=== PATIENT | male | born 1955 | race Caucasian/White ===

== ENCOUNTER 2019-10-26 15:43 | Emergency (ER) | payer BC, MEDICAID ==
--- NOTE | 2019-10-26 16:02 | ERPHSYRPT ---
- History of Present Illness Time Seen by Provider: 10/26/19 15:51 Source: patient Exam Limitations: no limitations Physician History: 64 years old male with history of tobacco abuse presented in the ER with sudden onset palpitation/fluttering sensation almost an hour prior to arrival while resting. Intermittent, associated with chest tightness and pressure/fullness w ithout any significant aggravating or relieving factors. Minimal shortness of breath. Patient reports having similar symptoms almost 10 days ago lasting for 2 hours but did not seek any medical attention. Denies any history of coronary artery disease or atrial fib/flutter/arrhythmias. Denies fever chills cough. No abdominal pain nausea or vomiting. Eyes heavy caffeine intake are energy drinks. Timing/Duration: today, sudden, worse Activities at Onset: rest Quality: pressure, tightness Location: substernal Chest Pain Radiation: no radiation Severity of Pain-Max: mild Severity of Pain-Current: mild Modifying Factors: Improves With: nothing Nitro Today/Relief: no nitro taken today Aspirin Treatment Today: 325 mg x 1 Prior Chest Pain/Cardiac Workup: no prior cardiac workup Allergies/Adverse Reactions: No Known Drug Allergies Allergy (Unverified 10/26/19 16:37) Home Medications: Aspirin 325 mg PO Q12H PRN PRN 10/26/19 [History] - Review of Systems Constitutional: No Symptoms Eyes: No Symptoms Ears, Nose, & Throat: No Symptoms Respiratory: Dyspnea Cardiac: Chest Pain, Palpitations Abdominal/Gastrointestinal: No Symptoms Genitourinary Symptoms: No Symptoms Musculoskeletal: No Symptoms Skin: No Symptoms Neurological: No Symptoms Psychological: No Symptoms Endocrine: No Symptoms Hematologic/Lymphatic: No Symptoms Immunological/Allergic: No Symptoms - Nursing Vital Signs Nursing Vital Signs: Initial Vital Signs Temperature 98.2 F 10/26/19 15:45 Pulse Rate 110 H 10/26/19 15:45 Respiratory Rate 22 10/26/19 15:45 Blood Pressure 173/138 10/26/19 15:45 O2 Sat by Pulse Oximetry 98 10/26/19 15:45 Pain Scale Pain Intensity 0 - Physical Exam General Appearance: no apparent distress, alert, anxiety Eye Exam: PERRL/EOMI, eyes nml inspection Ears, Nose, Throat Exam: normal ENT inspection, TMs normal, pharynx normal Neck Exam: normal inspection, non-tender, supple, full range of motion Respiratory Exam: normal breath sounds, lungs clear Cardiovascular Exam: tachycardia Gastrointestinal/Abdomen Exam: soft, normal bowel sounds, No tenderness Back Exam: normal inspection Extremity Exam: normal inspection, normal range of motion Neurologic Exam: alert, oriented x 3, cooperative, contract processor II-XII nml as tested Skin Exam: normal color SpO2 Interpretation: normal O2 Delivery: Room Air - Course Nursing assessment & vital signs reviewed: Yes EKG Interpreted by Me: RATE (157 with atrial flutter), NORMAL AXIS, Other (ST depression in anterolateral leads) Rhythm Strip: Atrial Flutter Ordered Tests: Active Orders 24 hr Category Date Time Status Scientist STAT Care 10/26/19 16:06 Active EKG-ER Only STAT Care 10/26/19 16:05 Active IV Insertion STAT Care 10/26/19 16:05 Active Oxygen-ED Only Nasal Cannula 2 lpm Care 10/26/19 16:05 Active CHEST 1 VIEW (PORTABLE) Routine Exams 10/26/19 16:01 Completed CBC W DIFF Stat Lab 10/26/19 15:45 Completed CMP Stat Lab 10/26/19 15:45 Completed MAGNESIUM Stat Lab 10/26/19 15:45 Completed Manual Differential NC Stat Lab 10/26/19 15:45 Completed NT PRO BNP Stat Lab 10/26/19 15:45 Completed PROTIME WITH INR Stat Lab 10/26/19 15:45 Completed PTT Stat Lab 10/26/19 15:45 Completed TROPONIN Q3H Lab 10/26/19 15:45 Completed TROPONIN Q3H Lab 10/26/19 19:15 Ordered TROPONIN Q3H Lab 10/26/19 22:15 Ordered TROPONIN Q3H Lab 10/27/19 01:15 Ordered TROPONIN Q3H Lab 10/27/19 04:15 Ordered TSH [TSH, 3RD Generation] Stat Lab 10/26/19 16:20 Completed UA W/RFX UR CULTURE Stat Lab 10/26/19 Completed Medication Summary Generic Name Dose Route Start Last Admin Trade Name Freq PRN Reason Stop Dose Admin Enoxaparin Sodium 90 mg 10/26/19 17:45 Enoxaparin Sodium 1 mg/kg (90 mg) 11/25/19 17:44 SQ 1XONLY GISELLE Magnesium Sulfate/Dextrose 100 mls @ 100 mls/hr 10/26/19 16:15 10/26/19 18:08 Magnesium 1 Gm / 100 Ml D5w IV 10/26/19 18:14 100 mls/hr Q1H GISELLE Administration Diltiazem HCl 100 mls @ 5 mls/hr 10/26/19 16:19 10/26/19 16:25 Cardizem Drip 100 Mg/100 Ml D5w IV 11/25/19 16:18 5 mg/hr .Q20H PRN 5 mls/hr HEART RATE/ A-FIB Administration Protocol 5 MG/HR Discontinued Medications Generic Name Dose Route Start Last Admin Trade Name Freq PRN Reason Stop Dose Admin Adenosine Confirm 10/26/19 16:08 Adenocard Iv 6 Mg/2 Ml Administered 10/26/19 16:09 Dose 12 mg IV .STK-MED ONE Diltiazem HCl 20 mg 10/26/19 16:19 10/26/19 16:25 Cardizem Iv 50 Mg/10 Ml IV 10/26/19 16:20 20 mg STAT ONE Administration Diltiazem HCl Confirm 10/26/19 16:22 Cardizem Iv 50 Mg/10 Ml Administered 10/26/19 16:23 Dose 50 mg IV .STK-MED ONE Sodium Chloride 1,000 mls @ 999 mls/hr 10/26/19 16:05 10/26/19 16:30 Sodium Chloride 0.9% 1000 Ml IV 10/26/19 17:05 999 mls/hr .Q1H1M STA Administration Sodium Chloride Confirm 10/26/19 16:08 Sodium Chloride 0.9% 1000 Ml Administered 10/26/19 16:09 Dose 1,000 mls @ ud .ROUTE .STK-MED ONE Lab/Rad Data: Laboratory Result Diagrams 10/26/19 15:45 10/26/19 15:45 Laboratory Results 10/26/19 10/26/19 10/26/19 Range/Units Unknown 16:20 15:45 WBC (4.0-10.5) K/mm3 RBC (4.1-5.6) M/mm3 Hgb (12.5-18.0) gm/dl Hct (42-50) % MCV (78-100) fl MCH (26-32) pg MCHC (32-36) g/dl RDW (11.5-14.0) % Plt Count (150-450) K/mm3 MPV (7.5-11.0) fl Segmented Neutrophils (36.-66.) % Band Neutrophils (0.0-2.0) % Lymphocytes (Manual) (24-44) % Monocytes (Manual) (0.0-12.0) % Eosinophils (Manual) (0.00-3.0) % Metamyelocytes % Platelet Estimate (NORMAL) RBC Morphology PT (8.83-12.87) SECONDS INR (0.8-3.0) APTT (24.1-36.1) SECONDS Sodium (137-145) mmol/L Potassium (3.5-5.1) mmol/L Chloride (98-107) mmol/L Carbon Dioxide (22-30) mmol/L Anion Gap (5-15) MEQ/L BUN (9-20) mg/dL Creatinine (0.66-1.25) mg/dL Estimated GFR ML/MIN Glucose (74-106) mg/dL Calcium (8.4-10.2) mg/dL Magnesium (1.6-2.3) mg/dL Total Bilirubin (0.2-1.3) mg/dL AST (17-59) U/L ALT (0-50) U/L Alkaline Phosphatase (38-126) U/L Troponin I < 0.012 (0.000-0.034) ng/mL NT-Pro-B Natriuret Pep (0-900) pg/mL Serum Total Protein (6.3-8.2) g/dL Albumin (3.5-5.0) g/dL TSH 3rd Generation 2.030 (0.47-4.68) mIU/L Urine Color STRAW (YELLOW) Urine Appearance CLEAR (CLEAR) Urine pH 5.0 (5-6) Ur Specific [place] 1.009 (1.005-1.025) Urine Protein NEGATIVE (Negative) Urine Ketones TRACE (NEGATIVE) Urine Blood SMALL (0-5) Noel/ul Urine Nitrite NEGATIVE (NEGATIVE) Urine Bilirubin NEGATIVE (NEGATIVE) Urine Urobilinogen NEGATIVE (0-1) mg/dL Ur Leukocyte Esterase NEGATIVE (NEGATIVE) Urine WBC (Auto) NONE (0-5) /HPF Urine RBC (Auto) NONE (0-2) /HPF U Epithel Cells (Auto) NONE (FEW) /HPF Urine Bacteria (Auto) NONE (NEGATIVE) /HPF Urine Mucus (Auto) SLIGHT (NEGATIVE) /HPF Urine Culture Reflexed NO (NO) Urine Glucose NEGATIVE (NEGATIVE) mg/dL 10/26/19 10/26/19 10/26/19 Range/Units 15:45 15:45 15:45 WBC 12.3 H (4.0-10.5) K/mm3 RBC 5.29 (4.1-5.6) M/mm3 Hgb 16.4 (12.5-18.0) gm/dl Hct 47.8 (42-50) % MCV 90.4 (78-100) fl MCH 31.0 (26-32) pg MCHC 34.3 (32-36) g/dl RDW 14.0 (11.5-14.0) % Plt Count 315 (150-450) K/mm3 MPV 10.2 (7.5-11.0) fl Segmented Neutrophils 74 H (36.-66.) % Band Neutrophils 1 (0.0-2.0) % Lymphocytes (Manual) 20 L (24-44) % Monocytes (Manual) 2 (0.0-12.0) % Eosinophils (Manual) 1 (0.00-3.0) % Metamyelocytes 2 % Platelet Estimate NORMAL (NORMAL) RBC Morphology NORMAL PT 11.6 (8.83-12.87) SECONDS INR 1.03 (0.8-3.0) APTT 33.7 (24.1-36.1) SECONDS Sodium 138 (137-145) mmol/L Potassium 4.3 (3.5-5.1) mmol/L Chloride 104 (98-107) mmol/L Carbon Dioxide 21 L (22-30) mmol/L Anion Gap 17.4 H (5-15) MEQ/L BUN 26 H (9-20) mg/dL Creatinine 1.14 (0.66-1.25) mg/dL Estimated GFR > 60.0 ML/MIN Glucose 104 (74-106) mg/dL Calcium 10.0 (8.4-10.2) mg/dL Magnesium 2.4 H (1.6-2.3) mg/dL Total Bilirubin 0.70 (0.2-1.3) mg/dL AST 38 (17-59) U/L ALT 41 (0-50) U/L Alkaline Phosphatase 95 (38-126) U/L Troponin I (0.000-0.034) ng/mL NT-Pro-B Natriuret Pep 40.2 (0-900) pg/mL Serum Total Protein 9.5 H (6.3-8.2) g/dL Albumin 5.1 H (3.5-5.0) g/dL TSH 3rd Generation (0.47-4.68) mIU/L Urine Color (YELLOW) Urine Appearance (CLEAR) Urine pH (5-6) Ur Specific [place] (1.005-1.025) Urine Protein (Negative) Urine Ketones (NEGATIVE) Urine Blood (0-5) Noel/ul Urine Nitrite (NEGATIVE) Urine Bilirubin (NEGATIVE) Urine Urobilinogen (0-1) mg/dL Ur Leukocyte Esterase (NEGATIVE) Urine WBC (Auto) (0-5) /HPF Urine RBC (Auto) (0-2) /HPF U Epithel Cells (Auto) (FEW) /HPF Urine Bacteria (Auto) (NEGATIVE) /HPF Urine Mucus (Auto) (NEGATIVE) /HPF Urine Culture Reflexed (NO) Urine Glucose (NEGATIVE) mg/dL - Progress Progress: improved, re-examined Air Movement: good Progress Note: 10/26/19 17:42 64 years old is evaluated for sudden onset of palpitations. Patient's heart rate was in 150s to 200s on presentation. He was maintaining his oxygen satura tion on room air. Does not seem to be in any distress. EKG showed no acute ST elevation but tachycardia. I have given him adenosine which slowed the heart rate for a few seconds but was back up again. The underlying rhythm I believe is atrial flutter. He is given 2gram magnesium along with bolus of Cardizem and started on Cardizem drip and currently heart rate in 110s. Chest x-ray did not show any acute cardiopulmonary findings. Negative initial troponins. I have given a dose of Lovenox. Discussed with Dr. Hartman, recommended transfer to [place] for further evaluation by cardiology. I think this is reasonable since we do not have cardiology services and patient has new onset arrhythmia, needs EP study and further evaluation by cardiology. Discussed with Dr. Ellsworth at [facility] and patient is accepted for transfer. Plan discussed with patient in detail who understand and agrees with transfer. Blood Culture(s) Obtained: No Antibiotics given: No Discussed with Dr.: Other (Ellsworth [place] [facility]) Counseled pt/family regarding: lab results, diagnosis, rad results, smoking cessation - Departure Departure Disposition: Transfer Clinical Impression: Atrial flutter Qualifiers: Atrial flutter type: unspecified Qualified Code(s): I48.92 - Unspecified atrial flutter Condition: Stable Critical Care Time: Yes Critical Care Time(excluding separately billable procedures): Critical 30-74 mins Referrals: DOCTOR,NO FAMILY [Primary Care Provider] -
[2019-10-26] MEDS ORDERED: Sodium Chloride 0.9% 1000 ML 1,000 ML IV STA (16:05)
[2019-10-26] MEDS ORDERED: Adenocard IV 6 MG/2 ML IV ONE (16:08)
[2019-10-26] MEDS ORDERED: Sodium Chloride 0.9% 1000 ML 1,000 ML ONE (16:08)
[2019-10-26] MEDS ORDERED: Magnesium 1 Gm / 100 Ml D5W*** 100 ML IV ONE ×2 (16:10→18:07)
[2019-10-26 16:16] LABS: Hematocrit 47.8 % (42-50); Hemoglobin 16.4 gm/dl (12.5-18.0); Mean Cell Volume 90.4 fl (78-100); Mean Corpuscular Hgb Concent. 34.3 g/dl (32-36); Mean Platelet Volume 10.2 fl (7.5-11.0); Platelet Count 315 K/mm3 (150-450); Red Blood Count 5.29 M/mm3 (4.1-5.6); White Blood Count 12.3 K/mm3 (4.0-10.5)
[2019-10-26] MEDS ORDERED: Cardizem IV 50 MG/10 ML IV ONE ×2 (16:19→16:22)
[2019-10-26] MEDS ORDERED: CARDIZEM DRIP 100 MG/100 ML D5W 100 ML IV PRN (16:19)
[2019-10-26] MEDS ORDERED: CARDIZEM DRIP 100 MG/100 ML D5W 100 ML IV ONE (16:22)
[2019-10-26 16:25] LABS: INR 1.03 (0.8-3.0); PROTIME 11.6 SECONDS (8.83-12.87)
[2019-10-26 16:27] LABS: PTT 33.7 SECONDS (24.1-36.1)
--- NOTE | 2019-10-26 16:28 | XRAY ---
Indication: Heart flutter. Blurred vision. Comparison: November 27, 2015. Portable chest remains hyperinflated and clear. Heart is not enlarged. Bony thorax intact again with mild degenerative changes. Impression: Continued nonacute hyperinflated chest.
[2019-10-26] MEDS: Magnesium 1 Gm / 100 Ml D5W*** 100 ML IV SCH ×2 (16:30→18:08)
[2019-10-26 16:39] LABS: ALBUMIN 5.1 g/dL (3.5-5.0); ALKALINE PHOSPHATASE 95 U/L (38-126); ANION GAP 17.4 MEQ/L (5-15); BLOOD UREA NITROGEN 26 mg/dL (9-20); CHLORIDE 104 mmol/L (98-107); Carbon Dioxide 21 mmol/L (22-30); Creatinine 1 1.14 mg/dL (0.66-1.25); Glucose 104 mg/dL (74-106); MAGNESIUM 2.4 mg/dL (1.6-2.3); NT PRO BNP 40.2 pg/mL (0-900); Potassium 4.3 mmol/L (3.5-5.1); SGOT/AST 38 U/L (17-59); SGPT/ALT 41 U/L (0-50); SODIUM 138 mmol/L (137-145); Total Protein 9.5 g/dL (6.3-8.2)
[2019-10-26 17:20] LABS: Appearance CLEAR (CLEAR); Bilirubin NEGATIVE (NEGATIVE); Blood SMALL Ery/ul (0-5); Glucose NEGATIVE (NEGATIVE); Ketones TRACE (NEGATIVE); Leukocyte Esterase NEGATIVE (NEGATIVE); Mucus SLIGHT /HPF (NEGATIVE); Nitrite NEGATIVE (NEGATIVE); Protein,Urine Dip NEGATIVE (Negative); Specific Gravity 1.009 (1.005-1.025); Urobilinogen NEGATIVE mg/dL (0-1)
[2019-10-26 17:42] LABS: BAND 1 % (0.0-2.0); Eosinophil 1 % (0.00-3.0); Lymphocytes 20 % (24-44); Metamyelocyte 2 %; Monocyte 2 % (0.0-12.0); Neutrophils 74 % (36.-66.); Total Cells Counted 100
[2019-10-26 17:43] LABS: Platelet Estimate NORMAL (NORMAL)
[2019-10-26] MEDS ORDERED: ENOXAPARIN SODIUM SQ SCH (17:45)
[2019-10-26] MEDS ORDERED: ENOXAPARIN SODIUM SQ ONE (18:09)
[2019-10-26] MEDS ORDERED: ENOXAPARIN SODIUM SQ STA (18:12)
[2019-10-26 19:12] VITALS: BP 139/87; PULSE 98; O2SAT 99
== END 2019-10-26 19:30 | disposition short-term general hospital (02) ==
LOC: ED 15:43
DX: I48.92 Unspecified atrial flutter (principal)
CPT/HCPCS: 36000; 36415; 71045; 80053; 81001; 83735; 83880; 84443; 84484; 85025; 85610; 85730; 93005; 93041; 96360; 96365; 96366; 96367; 96372; 96375; 99285; 99291; J0153; J1650; J3475

== ENCOUNTER 2019-12-02 08:08 | Day surgery (SDC) | payer MEDICAID, OTHER ==
[~2019-12-02 08:08] MED LIST: CEFAZOLIN 2 GM-D5W BAG** 2 GM/50 ML ML IV SCH; Lactated Ringers 1,000 ML IV SCH
[2019-12-02] MEDS ORDERED: CEFAZOLIN 2 GM-D5W BAG** 2 GM/50 ML ML IV ONE (09:02)
[2019-12-02] MEDS ORDERED: Lactated Ringers 1,000 ML IV ONE ×2 (09:03→10:22)
[2019-12-02] MEDS ORDERED: XYLOCAINE 1% HCL 20 ML MDV ONE ×2 (10:22→11:42)
[2019-12-02] MEDS ORDERED: SUBLIMAZE 100 MCG/2 ML ONE (10:24)
[2019-12-02] MEDS ORDERED: Versed 2 MG/2 ML Injection ONE (10:24)
[2019-12-02] MEDS ORDERED: Ketamine HCl 50 MG/ML ONE (10:32)
--- NOTE | 2019-12-02 12:04 | XRAY ---
Indication: Port placement. Intraoperative fluoroscopy was provided for 33 seconds. 3 digital spot images submitted for interpretation demonstrates left Port-A-Cath with tip projecting over the SVC. Correlate with intraoperative findings/report.
--- NOTE | 2019-12-02 12:05 | OP ---
SURGERY DATE/TIME: 12/02/2019 1024 PREOPERATIVE DIAGNOSIS: Tonsillar cancer. POSTOPERATIVE DIAGNOSIS: Tonsillar cancer. PROCEDURE: Left subclavian port insertion with fluoroscopic interpretation. SURGEON: Johnson Ricardo M.D. ANESTHESIA: IV anesthesia with local. PATIENT CONDITION: Stable. COMPLICATIONS: None. HISTORY: The patient is a 64 year old male with recently diagnosed tonsillar cancer, planning to undergo chemo and radiation treatment. Port was requested by oncology. Risk of infection, bleeding, internal bleeding and were discussed with the patient and he elected to proceed. FINDINGS: First stick. Tip at the cavoatrial junction. DESCRIPTION OF PROCEDURE: The patient was brought to operating room. He was placed supine with arms tucked. He was routinely prepped and draped. IV anesthesia was induced. A time out was performed. He did receive Ancef preoperatively. Lidocaine was injected at the left subclavian stick site. Seeker needle was advanced. There was dark, nonpulsatile return of blood on first stick. The wire threaded easily. This was confirmed with C-arm fluoroscopy. The pocket was measured out, anesthetized and then developed. Port was loosely sutured in place. The catheter was tunneled. The sheath dilator was placed under fluoroscopy. The catheter was inserted and measured to size. The tip was at the cavoatrial junction. The sheath was partially torn away. Tip was again confirmed and connected to catheter and the tear away sheath was lifted away. The stick was then imaged with fluoroscopy. The tip had actually flipped up into the internal jugular. As such the catheter at the stick incision was brought up and then did gently advance with fluoroscopy and it easily went down to the cavoatrial junction again. The final images of the tip and the entire rest of the catheter was at apex. The tip was at the cavoatrial junction. Prolene was tied down. The port was tested and there was good return and flushed. It was flushed with heparinized saline. Deep 3-0 Vicryl were placed and was closed with 4-0 Vicryl suture. Steri-Strips and sterile dressings were applied. All counts were correct. The patient tolerated the procedure well and was taken to recovery in stable condition.
[2019-12-02 12:17] VITALS: BP 112/74; PULSE 72; O2SAT 97
== END 2019-12-02 12:30 | disposition home or self-care (01) ==
LOC: SDC 08:08
PROVIDERS: ATTEND Surgery
DX: C09.9 Malignant neoplasm of tonsil, unspecified (principal)
CPT/HCPCS: 36571; 77001; C1788; J0690; J1642; J2250; J3010

== ENCOUNTER 2019-12-10 11:27 | Inpatient (IN) | payer OTHER ==
--- NOTE | 2019-12-10 11:35 | ERPHSYRPT ---
- History of Present Illness Time Seen by Provider: 12/10/19 11:35 Historian: patient, family Exam Limitations: no limitations Physician History: This is a 64-year-old white male who has a history of hypertension and atrial fibrillation on Eliquis and presents with diarrhea for 3 days. He has crampy lower abdominal pain. Patient is receiving chemotherapy for pharynge al/esophageal cancer. His oncologist is Dr. Rodriguez. His abdominal pain is a 4 out of 10. Patient also noticed that today he was having mild chest pain with the rating of 1 out of 10. He is not short of breath. He has had no nausea or vomiting symptoms. Patient feels that he is likely dehydrated. He does feel very weak. When he drinks fluid it goes right through him. He did take his medications this morning Timing/Duration: day(s) (3) Quality: cramping (Abdominal pain), tightness (Vague tightness in the chest) Location: substernal Chest Pain Radiation: no radiation Severity of Pain-Max: mild Severity of Pain-Current: mild Modifying Factors: Improves With: nothing Associated Symptoms: weakness, dizziness, No nausea, No vomiting Prior Chest Pain/Cardiac Workup: cardiac cath, recently seen/treated Nitro Today/Relief: no nitro taken today Aspirin Treatment Today: no aspirin today Allergies/Adverse Reactions: No Known Drug Allergies Allergy (Verified 12/10/19 11:49) Home Medications: ALPRAZolam [Alprazolam] 0.5 mg PO HSPRN PRN 11/30/19 [History] Atorvastatin Calcium [Lipitor] 80 mg PO HS 11/30/19 [History] Carvedilol 3.125 mg [Coreg 3.125 MG] 3.125 mg PO BID 11/30/19 [History] Diltiazem HCl [Matzim LA] 180 mg PO DAILY 11/30/19 [History] Fenofibrate Nanocrystallized [Fenofibrate] 145 mg PO DAILY 11/30/19 [History] Ondansetron ODT 4 MG [Zofran Odt 4 mg] 4 mg PO Q6H PRN PRN 11/30/19 [History] CISplatin [Cisplatin] 50 mg IV WEEKLY 12/10/19 [History] Docetaxel [Taxotere] 20 mg IV WEEKLY 08/14/20 [History] Hx Tetanus, Diphtheria Vaccination/Date Given: No Hx Influenza Vaccination/Date Given: No Hx Pneumococcal Vaccination/Date Given: No Travel Risk - International Travel Have you traveled outside of the country in past 3 weeks: No - Coronavirus Screening Are you exhibiting any of the following symptoms?: No Close contact with a COVID-19 positive Pt in past 14-21 Days: No - Review of Systems Constitutional: No Symptoms Eyes: No Symptoms Ears, Nose, & Throat: No Symptoms Respiratory: No Symptoms Cardiac: Chest Pain Abdominal/Gastrointestinal: Abdominal Pain (Crampy lower abdominal pain), Diarrhea, No Nausea, No Vomiting Genitourinary Symptoms: No Symptoms Musculoskeletal: No Symptoms Skin: No Symptoms Neurological: No Symptoms Psychological: No Symptoms Endocrine: No Symptoms Hematologic/Lymphatic: No Symptoms Immunological/Allergic: No Symptoms All Other Systems: Reviewed and Negative - Past Medical History Pertinent Past Medical History: Yes Neurological History: No Pertinent History ENT History: Other Cardiac History: Arrhythmia, High Cholesterol, Hypertension Respiratory History: Sleep Apnea Endocrine Medical History: No Pertinent History Musculoskeletal History: No Pertinent History GI Medical History: No Pertinent History History: No Pertinent History Psycho-Social History: Anxiety Male Reproductive Disorders: No Pertinent History Other Medical History: throat CA, AFib, sleep apnea - Past Surgical History Past Surgical History: Yes Neuro Surgical History: No Pertinent History Cardiac: No Pertinent History Respiratory: No Pertinent History Gastrointestinal: No Pertinent History Genitourinary: No Pertinent History Musculoskeletal: Orthopedic Surgery Male Surgical History: No Pertinent History Other Surgical History: R leg procedure for chain saw injury, basal cell carcinoma, - Social History Smoking Status: Former smoker How long have you smoked: 30 years Exposure to second hand smoke: No Drug Use: none Patient Lives Alone: No - Nursing Vital Signs Nursing Vital Signs: Initial Vital Signs Pulse Rate 121 H 12/10/19 11:43 Respiratory Rate 19 12/10/19 11:43 Blood Pressure 97/70 12/10/19 11:43 O2 Sat by Pulse Oximetry 93 L 12/10/19 11:43 Pain Scale Pain Intensity 4 - Physical Exam General Appearance: mild distress, alert, anxiety Eye Exam: PERRL/EOMI, eyes nml inspection Ears, Nose, Throat Exam: normal ENT inspection, moist mucous membranes Neck Exam: normal inspection, non-tender, supple, full range of motion Respiratory Exam: normal breath sounds, lungs clear, airway intact, No chest tenderness, No respiratory distress Cardiovascular Exam: normal peripheral pulses, tachycardia Gastrointestinal/Abdomen Exam: soft, normal bowel sounds, No tenderness Rectal Exam: not done Back Exam: normal inspection, normal range of motion, No CVA tenderness, No vertebral tenderness Extremity Exam: normal inspection, normal range of motion, pelvis stable Neurologic Exam: alert, oriented x 3, cooperative, president [employer] II-XII nml as tested, normal mood/affect, nml cerebellar function, nml station & gait, sensation nml Skin Exam: normal color, warm, dry Lymphatic Exam: No adenopathy SpO2 Interpretation: borderline oxygenation - Course Nursing assessment & vital signs reviewed: Yes Ordered Tests: Active Orders 24 hr Category Date Time Status Data Entry Associate STAT Care 12/10/19 11:44 Active EKG-ER Only STAT Care 12/10/19 11:43 Active IV Insertion STAT Care 12/10/19 11:43 Active Pulse Oximetry (ED) STAT Care 12/10/19 11:43 Active CHEST 1 VIEW (PORTABLE) Stat Exams 12/10/19 11:43 Completed CBC W DIFF Stat Lab 12/10/19 11:43 Completed CMP Stat Lab 12/10/19 12:23 Completed MAGNESIUM Stat Lab 12/10/19 12:23 Completed Manual Differential NC Stat Lab 12/10/19 11:43 Completed PROTIME WITH INR Stat Lab 12/10/19 12:23 Completed TROPONIN Q3H Lab 12/10/19 12:23 Completed TROPONIN Q3H Lab 12/10/19 14:45 Ordered TROPONIN Q3H Lab 12/10/19 17:45 Ordered TROPONIN Q3H Lab 12/10/19 20:45 Ordered TROPONIN Q3H Lab 12/10/19 23:45 Ordered Medication Summary Generic Name Dose Route Start Last Admin Trade Name Freq PRN Reason Stop Dose Admin Sodium Chloride 1,000 mls @ 999 mls/hr 12/10/19 13:20 Sodium Chloride 0.9% 1000 Ml IV 12/10/19 14:20 .Q1H1M STA Discontinued Medications Generic Name Dose Route Start Last Admin Trade Name Freq PRN Reason Stop Dose Admin Sodium Chloride 1,000 mls @ 999 mls/hr 12/10/19 11:43 12/10/19 12:35 Sodium Chloride 0.9% 1000 Ml IV 12/10/19 12:43 999 mls/hr .Q1H1M STA Administration Sodium Chloride Confirm 12/10/19 12:32 Sodium Chloride 0.9% 1000 Ml Administered 12/10/19 12:33 Dose 1,000 mls @ .[facility] Lab/Rad Data: Laboratory Result Diagrams 12/10/19 11:43 12/10/19 12:23 Laboratory Results 12/10/19 12/10/19 12/10/19 Range/Units 12:23 12:23 12:23 WBC (4.0-10.5) K/mm3 RBC (4.1-5.6) M/mm3 Hgb (12.5-18.0) gm/dl Hct (42-50) % MCV (78-100) fl MCH (26-32) pg MCHC (32-36) g/dl RDW (11.5-14.0) % Plt Count (150-450) K/mm3 MPV (7.5-11.0) fl Absolute Granulocytes (1.4-6.9) Segmented Neutrophils (36.-66.) % Band Neutrophils (0.0-2.0) % Lymphocytes (Manual) (24-44) % Monocytes (Manual) (0.0-12.0) % Platelet Estimate (NORMAL) RBC Morphology PT 21.6 H (8.83-12.87) SECONDS INR 1.90 (0.8-3.0) Sodium 129 L (137-145) mmol/L Potassium 3.8 (3.5-5.1) mmol/L Chloride 95 L (98-107) mmol/L Carbon Dioxide 20 L (22-30) mmol/L Anion Gap 16.8 H (5-15) MEQ/L BUN 29 H (9-20) mg/dL Creatinine 1.48 H (0.66-1.25) mg/dL Estimated GFR 51.2 ML/MIN Glucose 142 H (74-106) mg/dL Calcium 9.3 (8.4-10.2) mg/dL Magnesium 2.2 (1.6-2.3) mg/dL Total Bilirubin 1.00 (0.2-1.3) mg/dL AST 23 (17-59) U/L ALT 25 (0-50) U/L Alkaline Phosphatase 74 (38-126) U/L Troponin I < 0.012 (0.000-0.034) ng/mL Serum Total Protein 7.5 (6.3-8.2) g/dL Albumin 3.9 (3.5-5.0) g/dL 12/10/19 Range/Units 11:43 WBC 3.1 L (4.0-10.5) K/mm3 RBC 4.10 (4.1-5.6) M/mm3 Hgb 12.5 (12.5-18.0) gm/dl Hct 37.0 L (42-50) % MCV 90.2 (78-100) fl MCH 30.5 (26-32) pg MCHC 33.8 (32-36) g/dl RDW 13.9 (11.5-14.0) % Plt Count 289 (150-450) K/mm3 MPV 10.4 (7.5-11.0) fl Absolute Granulocytes 1.42 (1.4-6.9) Segmented Neutrophils 32 L (36.-66.) % Band Neutrophils 14 H (0.0-2.0) % Lymphocytes (Manual) 48 H (24-44) % Monocytes (Manual) 6 (0.0-12.0) % Platelet Estimate NORMAL (NORMAL) RBC Morphology NORMAL PT (8.83-12.87) SECONDS INR (0.8-3.0) Sodium (137-145) mmol/L Potassium (3.5-5.1) mmol/L Chloride (98-107) mmol/L Carbon Dioxide (22-30) mmol/L Anion Gap (5-15) MEQ/L BUN (9-20) mg/dL Creatinine (0.66-1.25) mg/dL Estimated GFR ML/MIN Glucose (74-106) mg/dL Calcium (8.4-10.2) mg/dL Magnesium (1.6-2.3) mg/dL Total Bilirubin (0.2-1.3) mg/dL AST (17-59) U/L ALT (0-50) U/L Alkaline Phosphatase (38-126) U/L Troponin I (0.000-0.034) ng/mL Serum Total Protein (6.3-8.2) g/dL Albumin (3.5-5.0) g/dL - Progress Progress: improved Air Movement: good Progress Note: 12/10/19 13:[address] Monte who is the patient's primary care physician. I reviewed the patient's history, condition, laboratory data, EKG results and radiographic findings. The patient appears to be dehydrated from multiple days and multiple episodes of diarrheal stools. We will place the patient in observation the patient for IV hydration. He accepts the patient for placement in observation. Blood Culture(s) Obtained: No Antibiotics given: No Discussed with : Juan Carlos Counseled pt/family regarding: lab results, diagnosis, need for follow-up, rad results - Departure Departure Disposition: Observation Clinical Impression: Intractable diarrhea, Dehydration, Hyponatremia, Hypotension due to hypovolemia Condition: Fair Critical Care Time: No Referrals: HAILEY MONTE [Primary Care Provider] -
[2019-12-10] MEDS ORDERED: Sodium Chloride 0.9% 1000 ML 1,000 ML IV STA ×2 (11:43→13:20)
--- NOTE | 2019-12-10 12:10 | XRAY ---
Indication: Chest pain. Chemotherapy for throat cancer. Comparison: October 26, 2019. Portable chest again demonstrates normal heart and lungs with new left Port-A-Cath. Bony thorax intact again with minimal degenerative changes.
[2019-12-10 12:20] LABS: Hemoglobin 12.5 gm/dl (12.5-18.0); Mean Cell Volume 90.2 fl (78-100); Mean Corpuscular Hemoglobin 30.5 pg (26-32); Mean Corpuscular Hgb Concent. 33.8 g/dl (32-36); Mean Platelet Volume 10.4 fl (7.5-11.0); Platelet Count 289 K/mm3 (150-450); Red Cell Distribution Width 13.9 % (11.5-14.0); White Blood Count 3.1 K/mm3 (4.0-10.5)
[2019-12-10 12:27] LABS: INR 1.9 (0.8-3.0); PROTIME 21.6 SECONDS (8.83-12.87)
[2019-12-10] MEDS ORDERED: Sodium Chloride 0.9% 1000 ML 1,000 ML ONE ×2 (12:32→13:34)
[2019-12-10 12:34] LABS: ALBUMIN 3.9 g/dL (3.5-5.0); ANION GAP 16.8 MEQ/L (5-15); Calcium 9.3 mg/dL (8.4-10.2); Creatinine 1 1.48 mg/dL (0.66-1.25); MAGNESIUM 2.2 mg/dL (1.6-2.3); Potassium 3.8 mmol/L (3.5-5.1); Total Protein 7.5 g/dL (6.3-8.2)
[2019-12-10 13:11] LABS: BAND 14 % (0.0-2.0); Lymphocytes 48 % (24-44); Monocyte 6 % (0.0-12.0); Neutrophils 32 % (36.-66.); Total Cells Counted 100
[2019-12-10 13:12] LABS: Platelet Estimate NORMAL (NORMAL)
[2019-12-10 13:13] LABS: Absolute Neutrophil Ct (ANC) 1.42 (1.4-6.9)
[2019-12-10] MEDS ORDERED: Zofran 4 MG/2 ML VIAL IV PRN (15:42)
[2019-12-10] MEDS ORDERED: NON-FORMULARY ITEM (Hydrocodone/Apap 5-325 Tab^^^ 1 TAB) PO PRN (16:58)
[2019-12-10] MEDS ORDERED: xanAX 0.5 MG PO PRN (16:58)
[2019-12-10] MEDS: Sodium Chloride 0.9% 1000 ML 1,000 ML IV SCH ×2 (16:59→23:47)
[2019-12-10] MEDS: MORPHINE SULFATE 2 MG INJ IV PRN ×3 (17:00→23:54)
[2019-12-10] MEDS: TYLENOL 325 MG PO PRN ×2 (17:36→21:19)
[2019-12-10] MEDS: Coreg 3.125 MG PO SCH (21:19)
[2019-12-10] MEDS: ELIQUIS 2.5 MG TABLET PO SCH (21:20)
[2019-12-10] MEDS: ZOCOR 20MG PO SCH (21:21)
[2019-12-10] MEDS ORDERED: NON-FORMULARY ITEM (Atorvastatin Calcium [Lipitor] 80 MG) PO SCH (22:00)
[2019-12-10] MEDS ORDERED: NON-FORMULARY ITEM (Apixaban [Eliquis] 5 MG) PO SCH (22:00)
[2019-12-11] MEDS: TYLENOL 325 MG PO PRN ×2 (01:24→06:07)
[2019-12-11] MEDS: MORPHINE SULFATE 2 MG INJ IV PRN ×3 (03:35→23:50)
[2019-12-11 05:57] LABS: Hematocrit 33.9 % (42-50); Hemoglobin 11.1 gm/dl (12.5-18.0); Mean Cell Volume 91.9 fl (78-100); Mean Corpuscular Hemoglobin 30.1 pg (26-32); Mean Corpuscular Hgb Concent. 32.7 g/dl (32-36); Mean Platelet Volume 10.3 fl (7.5-11.0); Platelet Count 287 K/mm3 (150-450); Red Blood Count 3.69 M/mm3 (4.1-5.6); White Blood Count 2.4 K/mm3 (4.0-10.5)
[2019-12-11 06:17] LABS: ALBUMIN 3.5 g/dL (3.5-5.0); ALKALINE PHOSPHATASE 61 U/L (38-126); ANION GAP 13.1 MEQ/L (5-15); BLOOD UREA NITROGEN 21 mg/dL (9-20); CHLORIDE 100 mmol/L (98-107); Calcium 8.5 mg/dL (8.4-10.2); Carbon Dioxide 22 mmol/L (22-30); Creatinine 1 1.17 mg/dL (0.66-1.25); Glucose 118 mg/dL (74-106); SGOT/AST 21 U/L (17-59); SGPT/ALT 21 U/L (0-50); SODIUM 132 mmol/L (137-145)
[2019-12-11 07:05] LABS: BAND 8 % (0.0-2.0); Lymphocytes 46 % (24-44); Monocyte 6 % (0.0-12.0); Neutrophils 40 % (36.-66.); Total Cells Counted 100
[2019-12-11 07:06] LABS: Platelet Estimate NORMAL (NORMAL)
[2019-12-11] MEDS: Sodium Chloride 0.9% 1000 ML 1,000 ML IV SCH (08:22)
[2019-12-11] MEDS: PROTONIX 40 MG IV IV SCH (09:38)
[2019-12-11] MEDS: ELIQUIS 2.5 MG TABLET PO SCH ×2 (09:43→22:01)
[2019-12-11] MEDS: IMODIUM 2 MG PO PRN ×3 (09:43→16:24)
[2019-12-11] MEDS: Tricor 145 MG PO SCH (09:43)
[2019-12-11] MEDS: D5W/0.45NS W/ 20mEq KCl 1000 ML 1,000 ML IV SCH ×3 (09:43→22:15)
[2019-12-11] MEDS ORDERED: DILTIAZEM HCL 180 MG PO SCH (10:00)
[2019-12-11] MEDS: Cardizem CD 180 MG PO SCH (10:46)
[2019-12-11] MEDS: Acidophilus TABLET PO SCH (10:46)
[2019-12-11] MEDS: Coreg 3.125 MG PO SCH ×2 (10:52→22:01)
[2019-12-11] MEDS: NORCO 5/325 MG PO PRN ×2 (14:40→20:42)
[2019-12-11 19:53] LABS: Campylobacter NEGATIVE (NEGATIVE); Enteroaggregative E.coli NEGATIVE (NEGATIVE); Enteropathogenic E.coli NEGATIVE (NEGATIVE); Enterotoxigenic E.coli NEGATIVE (NEGATIVE); Plesiomonas shigelloides NEGATIVE (NEGATIVE); Salmonella NEGATIVE (NEGATIVE); Shiga-like toxin prod.E.coli NEGATIVE (NEGATIVE); Vibrio NEGATIVE (NEGATIVE); Vibrio cholerae NEGATIVE (NEGATIVE); Yersinia enterocolitica NEGATIVE (NEGATIVE)
[2019-12-11 19:54] LABS: Adenovirus F 40/41 NEGATIVE (NEGATIVE); Astrovirus NEGATIVE (NEGATIVE); Cryptosporidium NEGATIVE (NEGATIVE); Cyclospora cayentanensis NEGATIVE (NEGATIVE); Entamoeaba histolytica NEGATIVE (NEGATIVE); Giardia lamblia NEGATIVE (NEGATIVE); Norovirus GI/GII NEGATIVE (NEGATIVE); Rotavirus A NEGATIVE (NEGATIVE); Sapovirus NEGATIVE (NEGATIVE)
[2019-12-11 19:55] LABS: C. Difficile Organism POSITIVE (NEGATIVE)
[2019-12-11] MEDS: FLAGYL 500 MG IVPB 500 MG/100 ML BAG IV SCH (22:01)
[2019-12-11] MEDS: ZOCOR 20MG PO SCH (22:01)
[2019-12-12] MEDS: FLAGYL 500 MG IVPB 500 MG/100 ML BAG IV SCH ×3 (05:01→21:55)
[2019-12-12] MEDS: NORCO 5/325 MG PO PRN ×3 (05:04→22:06)
[2019-12-12] MEDS: D5W/0.45NS W/ 20mEq KCl 1000 ML 1,000 ML IV SCH ×3 (05:10→20:54)
[2019-12-12] MEDS: ELIQUIS 2.5 MG TABLET PO SCH ×2 (10:11→21:55)
[2019-12-12] MEDS: PROTONIX 40 MG IV IV SCH (10:11)
[2019-12-12] MEDS: Tricor 145 MG PO SCH (10:11)
[2019-12-12] MEDS: Acidophilus TABLET PO SCH (10:11)
[2019-12-12] MEDS: Cardizem CD 180 MG PO SCH (10:11)
[2019-12-12] MEDS: Coreg 3.125 MG PO SCH ×2 (10:29→21:56)
[2019-12-12] MEDS: QUESTRAN Light 4 GM Packet PO SCH (12:13)
[2019-12-12] MEDS: ZOCOR 20MG PO SCH (21:56)
[2019-12-13 01:16] LABS: Appearance CLEAR (CLEAR); Bilirubin NEGATIVE (NEGATIVE); Blood SMALL Ery/ul (0-5); Glucose NEGATIVE (NEGATIVE); Ketones NEGATIVE (NEGATIVE); Leukocyte Esterase NEGATIVE (NEGATIVE); Nitrite NEGATIVE (NEGATIVE); Protein,Urine Dip NEGATIVE (Negative); RBC 0-2 /HPF (0-2); Specific Gravity 1.006 (1.005-1.025); Urobilinogen NEGATIVE mg/dL (0-1); WBC 0-2 /HPF (0-5)
[2019-12-13] MEDS: D5W/0.45NS W/ 20mEq KCl 1000 ML 1,000 ML IV SCH (03:51)
[2019-12-13 04:48] LABS: Hematocrit 28.7 % (42-50); Hemoglobin 9.4 gm/dl (12.5-18.0); Mean Corpuscular Hemoglobin 30.1 pg (26-32); Mean Corpuscular Hgb Concent. 32.8 g/dl (32-36); Mean Platelet Volume 9.9 fl (7.5-11.0); Platelet Count 350 K/mm3 (150-450); Red Blood Count 3.12 M/mm3 (4.1-5.6); Red Cell Distribution Width 14.6 % (11.5-14.0); White Blood Count 6.6 K/mm3 (4.0-10.5)
[2019-12-13 05:15] LABS: ALBUMIN 2.9 g/dL (3.5-5.0); ALKALINE PHOSPHATASE 55 U/L (38-126); ANION GAP 10.8 MEQ/L (5-15); BLOOD UREA NITROGEN 9 mg/dL (9-20); CHLORIDE 101 mmol/L (98-107); Calcium 7.7 mg/dL (8.4-10.2); Carbon Dioxide 23 mmol/L (22-30); Creatinine 1 0.94 mg/dL (0.66-1.25); Glucose 126 mg/dL (74-106); Potassium 5.2 mmol/L (3.5-5.1); SGOT/AST 22 U/L (17-59); SGPT/ALT 16 U/L (0-50); SODIUM 130 mmol/L (137-145)
[2019-12-13] MEDS: FLAGYL 500 MG IVPB 500 MG/100 ML BAG IV SCH (05:52)
[2019-12-13] MEDS: NORCO 5/325 MG PO PRN ×3 (06:01→22:26)
[2019-12-13 07:19] LABS: ANISOCYTOSIS 1+; BAND 14 % (0.0-2.0); Lymphocytes 33 % (24-44); Monocyte 16 % (0.0-12.0); Neutrophils 37 % (36.-66.); Platelet Estimate NORMAL (NORMAL); Total Cells Counted 100; Toxic Granulation 2+
[2019-12-13 07:20] LABS: Microcytosis 1+; Poikilocytosis 1+; Polychromasia RARE
[2019-12-13 07:21] LABS: Schistocytes RARE
[2019-12-13] MEDS: Sodium Chloride 0.9% 1000 ML 1,000 ML IV SCH ×3 (09:08→22:59)
[2019-12-13] MEDS: ELIQUIS 2.5 MG TABLET PO SCH ×2 (09:08→22:05)
[2019-12-13] MEDS: PROTONIX 40 MG IV IV SCH (09:08)
[2019-12-13] MEDS: Tricor 145 MG PO SCH (09:08)
[2019-12-13] MEDS: Acidophilus TABLET PO SCH (09:08)
[2019-12-13] MEDS: Cardizem CD 180 MG PO SCH (09:08)
[2019-12-13] MEDS: QUESTRAN Light 4 GM Packet PO SCH (09:09)
[2019-12-13] MEDS: Coreg 3.125 MG PO SCH ×2 (09:27→22:05)
--- NOTE | 2019-12-13 11:28 | HP ---
CHIEF COMPLAINT: Diarrhea, nausea, abdominal pain. HISTORY OF PRESENT ILLNESS: The patient is a 64 year old white male patient who has been diagnosed with esophageal cancer particularly in the pharyngeal area. The patient had been started by Dr. Dunlap on chemotherapy. He has now received his second. He reports he received two different chemotherapy medications on Mondays. He reports that after his most recent dose he had problems with diarrhea, unable to keep any fluids in his system as he would drink and it would go right through him. The patient reports that his heart rate became quite high. He does have a history of atrial fibrillation and his heart rate was running in the 160's. He therefore came to the emergency room for further evaluation and management. PAST MEDICAL HISTORY: The patient's medical history is otherwise significant for anxiety, hyperlipidemia and hypertension. PHYSICAL EXAMINATION: He had vital signs initially in the emergency room of pulse rate of 121, respiratory rate 19, blood pressure 97/70. O2 saturation 93%. HEENT: Normocephalic, atraumatic. Pupils equal round reactive to light. Extraocular movements intact. Oropharynx is somewhat dry. NECK: Supple. The patient reports that he has had decreasing swelling in his neck even after just two chemotherapy treatments. He did have some what appeared to be some lymphadenopathy in the left side of the neck. CHEST: Essentially clear. HEART: Regular rate and rhythm currently without significant murmurs, rubs or gallops. ABDOMEN: Diffusely tender. No palpable masses. EXTREMITIES: Without cyanosis, clubbing or edema. NEUROLOGIC: The patient is currently alert and oriented x3. LAB DATA AND TESTS: The patient's laboratory studies in the emergency room revealed a metabolic panel showing glucose 142, BUN 29, creatinine 1.48, sodium low at 129, potassium normal. Liver enzymes were normal. His troponin was less than 0.012. His white count was 3,100, hemoglobin 12.5, PLT count was normal at 289,000. His differential showed 14 bands, 32 polys and 48 lymphocytes. INR was noted to be 1.90. His chest x-ray shows a new Port-A-Cath otherwise his heart and lungs appear to be normal. His tracings currently show sinus rhythm. Appears to be on his initial 12-lead EKG of tachycardia. His axis appeared to be normal, appeared to be no significant delay in progression of R-wave across the precordial leads. ASSESSMENT: A patient with diarrhea, dehydration, mild acute kidney injury due to his chemotherapy agent. The patient has been admitted to the hospital for IV fluids and he will receive Imodium to help reduce the bowel movements as he has had more than ten in the last 24 hours. We will obtain stool samples to rule out any enteric pathogen but it is felt likely secondary to his chemotherapy medications. We will watch him for infections due to decreased white count due to chemotherapy agents as well. The patient to continue IV fluids to help with his dehydration and I will give him IV Protonix to help decrease his stomach acid concentration.
[2019-12-13] MEDS: VANCOMYCIN HCL CAPSULE PO SCH ×3 (14:10→22:04)
[2019-12-13] MEDS: ZOCOR 20MG PO SCH (22:04)
--- NOTE | 2019-12-13 22:38 | PCM.NOTE ---
Date and Time: 12/13/192232 - Review of Systems Constitutional: No Fever Eyes: No Symptoms Ears, Nose, & Throat: No Symptoms, Other (L sided throat cancer) Respiratory: No Cough, No Short Of Breath, No Wheezing Cardiac: No Chest Pain, No Edema Abdominal/Gastrointestinal: Abdominal Pain, Nausea, Diarrhea, No Vomiting, No Constipation, No Dysphagia Genitourinary Symptoms: Hesitancy Musculoskeletal: No Symptoms Skin: No Symptoms Neurological: No Symptoms Objective Exam General Appearance: no apparent distress, obese Neurologic Exam: oriented x 3, cooperative Skin Exam: normal color, warm, dry, No rash Gastrointestinal/Abdomen Exam: soft, normal bowel sounds, No tenderness, No distention OBJECTIVE DATA Vital Signs: Vital Signs - 24 hr Temp Pulse Resp BP Pulse Ox 12/13/19 20:00 98.5 F 82 20 102/66 98 12/13/19 16:00 98.4 F 79 16 106/65 99 12/13/19 12:00 96.7 F 76 18 110/67 99 12/13/19 08:00 98.1 F 73 18 93/61 97 12/13/19 04:00 97.8 F 78 16 90/56 99 12/13/19 00:00 98.3 F 74 21 83/62 98 Pain Assessment - Last Documented Pain Intensity 3 Pain Scale Used 0-10 Pain Scale Intake and Output: Intake & Output 12/11/19 12/12/19 12/13/19 12/14/19 11:59 11:59 11:59 11:59 Intake Total 2784 5913 960 3191 Balance 2784 5913 960 3191 Weight 89.1 kg 92.5 kg Lab Results: Lab Results-Last 24 Hours 12/13/19 12/13/19 12/13/19 Range/Units 00:38 04:25 04:25 WBC 6.6 (4.0-10.5) K/mm3 RBC 3.12 L (4.1-5.6) M/mm3 Hgb 9.4 L (12.5-18.0) gm/dl Hct 28.7 L (42-50) % MCV 92.0 (78-100) fl MCH 30.1 (26-32) pg MCHC 32.8 (32-36) g/dl RDW 14.6 H (11.5-14.0) % Plt Count 350 (150-450) K/mm3 MPV 9.9 (7.5-11.0) fl Segmented Neutrophils 37 (36.-66.) % Band Neutrophils 14 H (0.0-2.0) % Lymphocytes (Manual) 33 (24-44) % Monocytes (Manual) 16 H (0.0-12.0) % Toxic Granulation 2+ Platelet Estimate NORMAL (NORMAL) RBC Morphology ABNORMAL Polychromasia RARE Poikilocytosis 1+ Anisocytosis 1+ Microcytosis 1+ Schistocytes RARE Sodium 130 L (137-145) mmol/L Potassium 5.2 H D (3.5-5.1) mmol/L Chloride 101 (98-107) mmol/L Carbon Dioxide 23 (22-30) mmol/L Anion Gap 10.8 (5-15) MEQ/L BUN 9 (9-20) mg/dL Creatinine 0.94 (0.66-1.25) mg/dL Estimated GFR > 60.0 ML/MIN Glucose 126 H (74-106) mg/dL Calcium 7.7 L (8.4-10.2) mg/dL Total Bilirubin 0.50 (0.2-1.3) mg/dL AST 22 (17-59) U/L ALT 16 (0-50) U/L Alkaline Phosphatase 55 (38-126) U/L Serum Total Protein 6.0 L (6.3-8.2) g/dL Albumin 2.9 L (3.5-5.0) g/dL Urine Color YELLOW (YELLOW) Urine Appearance CLEAR (CLEAR) Urine pH 6.0 (5-6) Ur Specific [place] 1.006 (1.005-1.025) Urine Protein NEGATIVE (Negative) Urine Ketones NEGATIVE (NEGATIVE) Urine Blood SMALL (0-5) Noel/ul Urine Nitrite NEGATIVE (NEGATIVE) Urine Bilirubin NEGATIVE (NEGATIVE) Urine Urobilinogen NEGATIVE (0-1) mg/dL Ur Leukocyte Esterase NEGATIVE (NEGATIVE) Urine WBC (Auto) 0-2 (0-5) /HPF Urine RBC (Auto) 0-2 (0-2) /HPF U Epithel Cells (Auto) NONE (FEW) /HPF Urine Bacteria (Auto) NONE (NEGATIVE) /HPF Urine Culture Reflexed NO (NO) Urine Glucose NEGATIVE (NEGATIVE) mg/dL Assessment/Plan (1) Clostridium difficile infection Current Visit: Yes Status: Acute Assessment & Plan: Patient was on IV flagyl but was transitioned to PO vanc. Will dc on PO vanc to complete course. Patient was also started on probiotic as well. Patient likely developed cdiff in relation to weakened immune system from chemo for throat cancer. Code(s): A49.8 - OTHER BACTERIAL INFECTIONS OF UNSPECIFIED SITE (2) Hyperkalemia Current Visit: Yes Status: Acute Assessment & Plan: Patient was on IV fluids with 20 meq of K. Will discontinue and transition to NS. Code(s): E87.5 - HYPERKALEMIA (3) Dehydration Current Visit: Yes Status: Acute Code(s): E86.0 - DEHYDRATION (4) Hyponatremia Current Visit: Yes Status: Acute Code(s): E87.1 - HYPO-OSMOLALITY AND HYPONATREMIA (5) Intractable diarrhea Current Visit: Yes Status: Acute Code(s): R19.7 - DIARRHEA, UNSPECIFIED
[2019-12-14] MEDS: NORCO 5/325 MG PO PRN ×2 (04:31→23:54)
[2019-12-14] MEDS: Sodium Chloride 0.9% 1000 ML 1,000 ML IV SCH ×3 (05:27→22:21)
[2019-12-14] MEDS: Tricor 145 MG PO SCH (09:50)
[2019-12-14] MEDS: VANCOMYCIN HCL CAPSULE PO SCH ×4 (09:50→21:27)
[2019-12-14] MEDS: ELIQUIS 2.5 MG TABLET PO SCH ×2 (09:50→21:27)
[2019-12-14] MEDS: Acidophilus TABLET PO SCH (09:50)
[2019-12-14] MEDS: Cardizem CD 180 MG PO SCH (09:51)
[2019-12-14] MEDS: PROTONIX 40 MG IV IV SCH (09:51)
[2019-12-14] MEDS: QUESTRAN Light 4 GM Packet PO SCH (09:53)
[2019-12-14] MEDS: Coreg 3.125 MG PO SCH (12:14)
[2019-12-14] MEDS: MORPHINE SULFATE 2 MG INJ IV SCH ×5 (14:09→21:37)
[2019-12-14 15:01] LABS: ANION GAP 10.8 MEQ/L (5-15); BLOOD UREA NITROGEN 8 mg/dL (9-20); CHLORIDE 106 mmol/L (98-107); Calcium 7.6 mg/dL (8.4-10.2); Carbon Dioxide 23 mmol/L (22-30); Creatinine 1 0.79 mg/dL (0.66-1.25); Glucose 117 mg/dL (74-106); Potassium 3.9 mmol/L (3.5-5.1); SODIUM 135 mmol/L (137-145)
[2019-12-14 15:10] LABS: Hematocrit 32.7 % (42-50); Hemoglobin 10.4 gm/dl (12.5-18.0); Mean Cell Volume 93.2 fl (78-100); Mean Corpuscular Hemoglobin 29.6 pg (26-32); Mean Corpuscular Hgb Concent. 31.8 g/dl (32-36); Mean Platelet Volume 9.7 fl (7.5-11.0); Platelet Count 478 K/mm3 (150-450); Red Blood Count 3.51 M/mm3 (4.1-5.6); Red Cell Distribution Width 15.7 % (11.5-14.0); White Blood Count 10.3 K/mm3 (4.0-10.5)
--- NOTE | 2019-12-14 17:13 | XRAY ---
Indication: Nausea, vomiting, bloating, and diarrhea. History throat cancer with chemotherapy. Multiple contiguous axial images obtained through the abdomen and pelvis using 80 cc Isovue 370 contrast only. Comparison: None Lung bases demonstrates minimal fibrosis/scarring. Heart is not enlarged. Small hiatal hernia. Noncontrasted stomach and bowel loops appear nonobstructed. Normal appendix. Mild scattered descending and sigmoid diverticulosis. Descending colon demonstrates mild wall thickening with mild pericolonic stranding favoring diverticulitis. Additional mild stranding of the perirectal fat suggesting proctitis. No free fluid/air. There are multiple hepatic cysts, largest left lobe measuring 2.3 cm. Moderately distended gallbladder without gallstones or biliary distention. Urinary bladder is markedly distended concerning for outlet obstruction versus neurogenic bladder. Remaining liver, pancreas, spleen, adrenal glands, kidneys, and ureters appear unremarkable. Minimal scattered aortoiliac calcifications. No AAA or pathological retroperitoneal lymphadenopathy. Osseous structures intact with minimal degenerative changes throughout the thoracolumbar spine and old right 10th rib fracture. Small fatty right inguinal hernia. Impression: 1. Colonic diverticulosis with mild descending diverticulitis. Also suspect mild proctitis. No complications. 2. Distended gallbladder without gallstones. Gallbladder sonogram may yield further information. 3. Markedly distended urinary bladder. Rule out outlet obstruction versus neurogenic bladder. 4. Incidental small hiatal hernia, hepatic cysts, fatty right inguinal hernia, and chronic bony findings.
[2019-12-14] MEDS: ZOCOR 20MG PO SCH (21:27)
[2019-12-15] MEDS: MORPHINE SULFATE 2 MG INJ IV SCH ×9 (00:01→14:26)
[2019-12-15] MEDS: Sodium Chloride 0.9% 1000 ML 1,000 ML IV SCH ×3 (04:45→19:35)
[2019-12-15 05:26] LABS: Hematocrit 28.4 % (42-50); Mean Cell Volume 93.4 fl (78-100); Mean Corpuscular Hemoglobin 29.6 pg (26-32); Mean Corpuscular Hgb Concent. 31.7 g/dl (32-36); Mean Platelet Volume 9.5 fl (7.5-11.0); Platelet Count 452 K/mm3 (150-450); Red Blood Count 3.04 M/mm3 (4.1-5.6); Red Cell Distribution Width 15.9 % (11.5-14.0); White Blood Count 10.4 K/mm3 (4.0-10.5)
[2019-12-15 05:46] LABS: ANION GAP 9.9 MEQ/L (5-15); BLOOD UREA NITROGEN 10 mg/dL (9-20); CHLORIDE 107 mmol/L (98-107); Calcium 7.2 mg/dL (8.4-10.2); Carbon Dioxide 22 mmol/L (22-30); Creatinine 1 0.83 mg/dL (0.66-1.25); Glucose 92 mg/dL (74-106); SODIUM 135 mmol/L (137-145)
[2019-12-15] MEDS: NORCO 5/325 MG PO PRN ×3 (06:03→22:52)
[2019-12-15] MEDS: Cardizem CD 180 MG PO SCH (10:10)
[2019-12-15] MEDS: ELIQUIS 2.5 MG TABLET PO SCH ×2 (10:10→22:52)
[2019-12-15] MEDS: Acidophilus TABLET PO SCH (10:10)
[2019-12-15] MEDS: PROTONIX 40 MG IV IV SCH (10:10)
[2019-12-15] MEDS: VANCOMYCIN HCL CAPSULE PO SCH ×4 (10:10→22:52)
[2019-12-15] MEDS: Tricor 145 MG PO SCH (10:10)
[2019-12-15] MEDS: QUESTRAN Light 4 GM Packet PO SCH (10:10)
[2019-12-15] MEDS ORDERED: MORPHINE SULFATE 2 MG INJ IV PRN (16:54)
[2019-12-15] MEDS: ZOCOR 20MG PO SCH (22:51)
[2019-12-16] MEDS: Sodium Chloride 0.9% 1000 ML 1,000 ML IV SCH ×4 (02:02→22:45)
--- NOTE | 2019-12-16 09:10 | PCM.NOTE ---
Date and Time: 12/16/1907 Subjective Assessment: Pt is still having liquid stools, but with some formed stools as well. Still having bilat lower abd pain. Kayla po fine. - Review of Systems Constitutional: No Fever Abdominal/Gastrointestinal: Diarrhea Objective Exam General Appearance: no apparent distress, alert, obese Neurologic Exam: oriented x 3, cooperative Skin Exam: normal color, warm, dry, No rash Ears, Nose, Throat Exam: moist mucous membranes Respiratory Exam: normal breath sounds, lungs clear, No crackles/rales, No rhonchi, No wheezing Cardiovascular Exam: regular rate/rhythm, normal heart sounds, No murmur Gastrointestinal/Abdomen Exam: soft, normal bowel sounds, tenderness (LLQ and RLQ, mild), distention, No mass, No guarding, No rebound Extremity Exam: normal inspection, No pedal edema, No swelling Back Exam: normal inspection, No rash OBJECTIVE DATA Vital Signs: Vital Signs - 24 hr Temp Pulse Resp BP Pulse Ox 12/16/19 07:42 98.1 F 73 18 120/70 98 12/16/19 03:46 97.7 F 81 20 104/61 97 12/15/19 23:29 98.3 F 80 18 106/71 97 12/15/19 20:00 97.6 F 71 20 104/56 98 12/15/19 16:00 98.5 F 74 16 116/72 97 12/15/19 12:00 98.3 F 76 16 113/67 98 Pain Assessment - Last Documented Pain Intensity 3 Pain Scale Used FLACC Intake and Output: Intake & Output 12/13/19 12/14/19 12/15/19 12/16/19 11:59 11:59 11:59 11:59 Intake Total 960 5712 1800 7109 Balance 960 5712 1800 7109 Weight 94.1 kg 92.2 kg 94.2 kg Radiology Exams: Radiology Procedures Category Date Time Status ABDOMEN AND PELVIS W CONTRAST [CT] Routine Exams 12/14/19 15:00 Completed Multi-Disciplinary Progress Notes: Multi-Disciplinary Progress Notes 12/15/19 09:13 Case Management Note by Myesha Lott NO NEW NEEDS IDENTIFIED FOR DC AT THIS TIME Initialized on 12/15/19 09:13 - END OF NOTE Assessment/Plan (1) Clostridium difficile infection Current Visit: Yes Status: Acute Assessment & Plan: Still having too much output to keep up fluids po. On po vancomycin with some beginning of improvement. Code(s): A49.8 - OTHER BACTERIAL INFECTIONS OF UNSPECIFIED SITE (2) Hyperkalemia Current Visit: Yes Status: Acute Assessment & Plan: rechecking labs Code(s): E87.5 - HYPERKALEMIA (3) Hyponatremia Current Visit: Yes Status: Acute Assessment & Plan: rechecking labs Code(s): E87.1 - HYPO-OSMOLALITY AND HYPONATREMIA (4) Throat cancer Current Visit: Yes Status: Chronic Code(s): C14.0 - MALIGNANT NEOPLASM OF PHARYNX, UNSPECIFIED
[2019-12-16] MEDS: Tricor 145 MG PO SCH (09:52)
[2019-12-16] MEDS: PROTONIX 40 MG IV IV SCH (09:52)
[2019-12-16] MEDS: ELIQUIS 2.5 MG TABLET PO SCH ×2 (09:52→22:44)
[2019-12-16] MEDS: Acidophilus TABLET PO SCH (09:52)
[2019-12-16] MEDS: Cardizem CD 180 MG PO SCH (09:52)
[2019-12-16] MEDS: QUESTRAN Light 4 GM Packet PO SCH (09:52)
[2019-12-16] MEDS: VANCOMYCIN HCL CAPSULE PO SCH ×4 (09:52→22:44)
[2019-12-16 09:55] LABS: Hematocrit 31.2 % (42-50); Mean Cell Volume 93.7 fl (78-100); Mean Corpuscular Hgb Concent. 32.1 g/dl (32-36); Mean Platelet Volume 9.1 fl (7.5-11.0); Platelet Count 500 K/mm3 (150-450); Red Blood Count 3.33 M/mm3 (4.1-5.6); Red Cell Distribution Width 16.3 % (11.5-14.0); White Blood Count 10.4 K/mm3 (4.0-10.5)
[2019-12-16] MEDS: NORCO 5/325 MG PO PRN ×2 (10:11→22:44)
[2019-12-16 10:50] LABS: ALKALINE PHOSPHATASE 79 U/L (38-126); BLOOD UREA NITROGEN 9 mg/dL (9-20); CHLORIDE 108 mmol/L (98-107); Calcium 7.7 mg/dL (8.4-10.2); Carbon Dioxide 23 mmol/L (22-30); Creatinine 1 0.79 mg/dL (0.66-1.25); Glucose 114 mg/dL (74-106); SGOT/AST 102 U/L (17-59); SGPT/ALT 116 U/L (0-50); SODIUM 135 mmol/L (137-145)
[2019-12-16 10:57] LABS: ANISOCYTOSIS 1+; BAND 8 % (0.0-2.0); Lymphocytes 18 % (24-44); Monocyte 7 % (0.0-12.0); Neutrophils 67 % (36.-66.); Platelet Estimate INCREASED (NORMAL); Total Cells Counted 100; Toxic Granulation 1+
[2019-12-16] MEDS: ZOCOR 20MG PO SCH (22:44)
[2019-12-17 08:50] VITALS: BP 125/69; PULSE 66; O2SAT 97
--- NOTE | 2019-12-17 09:10 | PCM.DS ---
Discharge Summary Date of Admission: 12/11/19 20:00 Admitting Physician: HAILEY MONTE Primary Care Provider: HAILEY MONTE Allergies Allergies No Known Drug Allergies Allergy (Verified 12/10/19 11:49) Hospital Summary - Hospital Course Hospital Course: Pt is 64 yo male pt of Dr. Monte with hyperlipidemia, hypertriglyceridemia, and hx BCC and throat cancer (tx with chemo) who was admitted with c. diff diarrhea. He has been on po vancomycin. His diarrhea stopped yesterday about noon and he is constantine po well. Denies any abd pain. Will be discharged to home to finish 10d total of antibiotic. Stay on probiotics. f/u with Dr. Monte in 1 week. - Vitals & Intake/Output Vital Signs: Vital Signs Temperature 98.5 F 12/17/19 08:00 Pulse Rate 66 12/17/19 08:00 Respiratory Rate 18 12/17/19 08:00 Blood Pressure 125/69 12/17/19 08:00 O2 Sat by Pulse Oximetry 97 12/17/19 08:00 Intake & Output: Intake & Output 12/14/19 12/15/19 12/16/19 12/17/19 11:59 11:59 11:59 11:59 Intake Total 5712 1800 7349 3643 Balance 5712 1800 7349 3643 Weight 94.1 kg 92.2 kg 94.2 kg 92.8 kg - Lab Result Diagrams: 12/16/19 09:40 12/16/19 09:40 Lab Results-Last 24 Hrs: Lab Results-Last 24 Hours 12/16/19 12/16/19 Range/Units 09:40 09:40 WBC 10.4 (4.0-10.5) K/mm3 RBC 3.33 L (4.1-5.6) M/mm3 Hgb 10.0 L (12.5-18.0) gm/dl Hct 31.2 L (42-50) % MCV 93.7 (78-100) fl MCH 30.0 (26-32) pg MCHC 32.1 (32-36) g/dl RDW 16.3 H (11.5-14.0) % Plt Count 500 H (150-450) K/mm3 MPV 9.1 (7.5-11.0) fl Segmented Neutrophils 67 H (36.-66.) % Band Neutrophils 8 H (0.0-2.0) % Lymphocytes (Manual) 18 L (24-44) % Monocytes (Manual) 7 (0.0-12.0) % Toxic Granulation 1+ Platelet Estimate INCREASED (NORMAL) RBC Morphology ABNORMAL Anisocytosis 1+ Sodium 135 L (137-145) mmol/L Potassium 4.0 (3.5-5.1) mmol/L Chloride 108 H (98-107) mmol/L Carbon Dioxide 23 (22-30) mmol/L Anion Gap 9.0 (5-15) MEQ/L BUN 9 (9-20) mg/dL Creatinine 0.79 (0.66-1.25) mg/dL Estimated GFR > 60.0 ML/MIN Glucose 114 H (74-106) mg/dL Calcium 7.7 L (8.4-10.2) mg/dL Total Bilirubin 0.40 (0.2-1.3) mg/dL AST 102 H (17-59) U/L ALT 116 H (0-50) U/L Alkaline Phosphatase 79 (38-126) U/L Serum Total Protein 6.0 L (6.3-8.2) g/dL Albumin 3.0 L (3.5-5.0) g/dL - Procedures and Test Procedures and Tests throughout Hospitalization: Therapy Orders & Screens 12/10/19 15:42 EKG REPEAT IN AM Comment: 12/10/19 17:16 BiPap/CPAP ROUTINE Comment: Diagnosis: Intractable diarrhea Discharge Exam General Appearance: no apparent distress, alert, obese Neurologic Exam: oriented x 3, cooperative Eye Exam: eyes nml inspection Ears, Nose, Throat Exam: moist mucous membranes Neck Exam: normal inspection Respiratory Exam: normal breath sounds, lungs clear, No crackles/rales, No rhonchi, No wheezing Cardiovascular Exam: regular rate/rhythm, normal heart sounds, No murmur Gastrointestinal/Abdomen Exam: soft, normal bowel sounds, tenderness (very mild, LLQ), No distention, No mass, No guarding, No rebound Back Exam: normal inspection, No rash Extremity Exam: normal inspection, swelling (trace pretibial edema bilat) Skin Exam: normal color, warm, dry, No rash Final Diagnosis/Problem List - Final Discharge Diagnosis/Problem (1) Clostridium difficile infection Current Visit: Yes Status: Acute Assessment & Plan: Doing great, home on po vancomycin and probiotics. RTC if fever, return of diarrhea, not able to tolerate po, or any other worrisome sx. Code(s): A49.8 - OTHER BACTERIAL INFECTIONS OF UNSPECIFIED SITE (2) Hyperkalemia Current Visit: Yes Status: Resolved Code(s): E87.5 - HYPERKALEMIA (3) Hyponatremia Current Visit: Yes Status: Chronic Assessment & Plan: very slightly decreased today at 135. Code(s): E87.1 - HYPO-OSMOLALITY AND HYPONATREMIA (4) Throat cancer Current Visit: Yes Status: Chronic Code(s): C14.0 - MALIGNANT NEOPLASM OF PHARYNX, UNSPECIFIED - Discharge Disposition: Home, Self-Care Condition: Good Prescriptions: New Lactobacillus Acidophilus [Acidophilus TABLET] 1 tab PO DAILY tablet PANTOPRAZOLE 40 mg Tablet [Protonix 40MG Tablet] 40 mg PO QAM #5 tab Cholestyramine Light 4 gm [QUESTRAN Light 4 GM Packet] 4 gm PO DAILY #5 packet Vancomycin HCl [Vancomycin HCl Capsule] 125 mg PO QID 5 Days #20 capsule Continue Ondansetron ODT 4 MG [Zofran Odt 4 mg] 4 mg PO Q6H PRN PRN PRN Reason: Nausea/Vomiting Fenofibrate Nanocrystallized [Fenofibrate] 145 mg PO DAILY Diltiazem HCl [Matzim LA] 180 mg PO DAILY Carvedilol 3.125 mg [Coreg 3.125 MG] 3.125 mg PO BID Atorvastatin Calcium [Lipitor] 80 mg PO HS ALPRAZolam [Alprazolam] 0.5 mg PO HSPRN PRN PRN Reason: Anxiety Hydrocodone/APAP 5-325 Tab^^^ [Acme 5-325 Tablet^^^] 1 tab PO Q6HPRN PRN #10 tablet MDD 6 PRN Reason: Pain Apixaban [Eliquis] 5 mg PO BID #0 Docetaxel [Taxotere] 20 mg IV WEEKLY CISplatin [Cisplatin] 50 mg IV WEEKLY Follow up with: HAILEY MONTE [Primary Care Provider] - 1 Week
== END 2019-12-17 11:55 | disposition home or self-care (01) | DRG 372 ==
LOC: ED 11:27 → MED SURG 15:40 → OBSVTOIN 12-11 20:00
PROVIDERS: ADMIT Family Medicine; ATTEND Family Medicine
DX: A04.72 Enterocolitis due to Clostridium difficile, not specified as recurrent (principal); E87.1 Hypo-osmolality and hyponatremia; N17.9 Acute kidney failure, unspecified; E86.0 Dehydration; C14.0 Malignant neoplasm of pharynx, unspecified; E87.5 Hyperkalemia; Z79.899 Other long term (current) drug therapy
CPT/HCPCS: 36000; 36415; 71045; 74177; 80048; 80053; 81001; 83735; 84484; 85025; 85027; 85610; 87507; 93005; 93041; 93268; 94660; 94760; 96360; 96361; 96374; 99285; J2270; A9270-GY; G0378

== ENCOUNTER 2021-01-21 22:38 | Emergency (ER) | payer OTHER ==
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
[2021-01-21] MEDS ORDERED: Sodium Chloride 0.9% 1000 ML 1,000 ML IV STA (23:09)
[2021-01-21] MEDS ORDERED: Sodium Chloride 0.9% 1000 ML 1,000 ML ONE (23:10)
[2021-01-21 23:13] LABS: Absolute Neutrophil Ct (ANC) 4.25 (1.4-6.9); Basophil (Absolute #) 0 (0-0.4); Eosinophil % 0.7 % (0.00-5.0); Eosinophil (Absolute #) 0.05 (0-0.5); Hemoglobin 11.1 gm/dl (12.5-18.0); Lymphocyte (Absolute #) 1.52 (1.0-4.6); Lymphocytes % 22.8 % (24.0-44.0); Mean Cell Volume 94.4 fl (78-100); Mean Corpuscular Hemoglobin 30.8 pg (26-32); Mean Corpuscular Hgb Concent. 32.6 g/dl (32-36); Mean Platelet Volume 8.9 fl (7.5-11.0); Monocyte (Absolute #) 0.85 (0.0-1.3); Monocytes % 12.7 % (0.0-12.0); Neutrophil % 63.8 % (36.0-66.0); Platelet Count 315 K/mm3 (150-450); Red Cell Distribution Width 13.9 % (11.5-14.0); White Blood Count 6.7 K/mm3 (4.0-10.5)
[2021-01-21 23:24] LABS: ALBUMIN 4.4 g/dL (3.5-5.0); ALKALINE PHOSPHATASE 46 U/L (38-126); ANION GAP 14.8 MEQ/L (5-15); BLOOD UREA NITROGEN 21 mg/dL (9-20); CHLORIDE 103 mmol/L (98-107); Calcium 9.3 mg/dL (8.4-10.2); Carbon Dioxide 25 mmol/L (22-30); Creatinine 1 1.62 mg/dL (0.66-1.25); ETHYL ALCOHOL < 10 mg/dL (0-10); Glucose 137 mg/dL (74-106); MAGNESIUM 1.8 mg/dL (1.6-2.3); Potassium 3.8 mmol/L (3.5-5.1); SGOT/AST 37 U/L (17-59); SGPT/ALT 62 U/L (0-50); SODIUM 139 mmol/L (137-145); Total Protein 7.4 g/dL (6.3-8.2)
[2021-01-22 00:26] LABS: Appearance CLEAR (CLEAR); Bilirubin NEGATIVE (NEGATIVE); Blood NEGATIVE Ery/ul (0-5); Glucose NEGATIVE (NEGATIVE); Ketones NEGATIVE (NEGATIVE); Leukocyte Esterase NEGATIVE (NEGATIVE); Nitrite NEGATIVE (NEGATIVE); Protein,Urine Dip NEGATIVE (Negative); Specific Gravity 1.005 (1.005-1.025); Urobilinogen NEGATIVE mg/dL (0-1)
[2021-01-22 00:29] VITALS: PULSE 65
[2021-01-22 00:40] LABS: Amphetamine,Urine NEGATIVE (NEGATIVE); Barbiturate,Urine NEGATIVE (NEGATIVE); Benzodiazepine,Urine NEGATIVE (NEGATIVE); Cocaine,Urine NEGATIVE (NEGATIVE); Methadone,Urine NEGATIVE (NEGATIVE); Opiate,Urine NEGATIVE (NEGATIVE); PCP,Urine NEGATIVE (NEGATIVE); THC,Urine NEGATIVE (NEGATIVE)
[2021-01-22 01:21] VITALS: BP 101/67; O2SAT 98
--- NOTE | 2021-01-22 08:45 | XRAY ---
Indication: Dizziness. Multiple contiguous axial images obtained through the head without contrast. Comparison: None. Normal appearing brain parenchyma, ventricles, and bony calvarium. Moderate mucosal thickening of both maxillary sinuses. Impression: Normal CT head without contrast exam. Incidental paranasal sinus disease. Comment: Preliminary interpretation made by [facility]. No critical discrepancy.
== END 2021-01-22 01:34 | disposition home or self-care (01) ==
LOC: ED 22:38
DX: R42 Dizziness and giddiness (principal); I10 Essential (primary) hypertension; I48.91 Unspecified atrial fibrillation; Z79.01 Long term (current) use of anticoagulants; E78.00 Pure hypercholesterolemia, unspecified; K21.9 Gastro-esophageal reflux disease without esophagitis; Z79.899 Other long term (current) drug therapy
CPT/HCPCS: 36000; 36415; 70450; 80053; 80307; 81001; 83735; 84484; 85025; 96360; 99284; G0480

== ENCOUNTER 2024-04-05 06:34 | Day surgery (SDC) | payer MEDICARE, OTHER ==
[2024-04-05 06:48] VITALS: RESP 18
[2024-04-05] MEDS ORDERED: Versed 2 MG/2 ML Injection ONE (07:39)
[2024-04-05] MEDS ORDERED: Xylocaine-Mpf 2% 5 Ml Vial ONE (07:41)
[2024-04-05] MEDS ORDERED: DIPRIVAN 200 MG/20 ML IV ONE (07:41)
[2024-04-05] MEDS ORDERED: Ephedrine Sulfate 50 MG/ML ONE (07:50)
[2024-04-05] MEDS ORDERED: SUBLIMAZE 100 MCG/2 ML ONE (07:50)
[2024-04-05] MEDS ORDERED: PHENYLEPHRINE HCL ONE (07:54)
[2024-04-05] MEDS ORDERED: ATROPINE SULFATE 1MG ONE (07:57)
[2024-04-05 08:30] VITALS: TEMP 97.8; O2SAT 94
[2024-04-05 08:38] VITALS: BP 113/71; PULSE 77
--- NOTE | 2024-04-06 13:51 | OP ---
SURGERY DATE/TIME: 04/05/24 [id number] PREOPERATIVE DIAGNOSIS: Evaluation screening exam. POSTOPERATIVE DIAGNOSIS: Moderate to severe sigmoid diverticulosis. Otherwise, normal colon. PROCEDURE: Colonoscopy. SURGEON: Scot Hartman MD ANESTHESIA: Medications were given by the anesthesia department. INDICATIONS: The patient is a 68-year-old white male patient now presenting for screening colonoscopy. The patient reports he has never had an exam previously. The patient was appraised of the risks of the procedure including risk of perforation, phlebitis, untoward reaction to medication, bleeding, and missed lesions. The patient verbalized his understanding and desire to have procedure performed. DESCRIPTION OF PROCEDURE AND FINDINGS: The patient was given medication by the anesthesia department and had continuous pulse oximetry, ECG monitoring, and intermittent blood pressure monitoring during the examination. He was placed in the left lateral decubitus position. Digital rectal examination was performed and revealed normal anal sphincter tone, no masses, and a normal prostate. The flexible Olympus videocolonoscope was used to intubate the rectum. A view of the colon was developed sequentially to the cecum. Upon insertion and withdrawal, there was noted to be moderate to severe sigmoid diverticulosis. Otherwise, no mucosal lesions were encountered. The scope was removed. The patient tolerated the procedure well and was sent back to outpatient recovery in good condition. The prep was noted to be fair to poor with semi-solid to solid noted in his sigmoid portion of the colon but that cleared in the mid sigmoid colon to the cecum.
== END 2024-04-05 08:42 | disposition home or self-care (01) ==
LOC: SDC 06:34
PROVIDERS: ATTEND Family Medicine
DX: Z12.11 Encounter for screening for malignant neoplasm of colon (principal); K57.30 Diverticulosis of large intestine without perforation or abscess without bleeding
CPT/HCPCS: 93005; G0121; J0461; J2250; J2371; J2704; J3010

== ENCOUNTER 2024-05-03 10:57 | Observation (INO) | payer MEDICARE, OTHER ==
--- NOTE | 2024-05-03 12:05 | ERPHSYRPT ---
- History of Present Illness Time Seen by Provider: 05/03/24 11:55 Source: patient Exam Limitations: no limitations Patient Subjective Stated Complaint: pt here for runny nose, cough, and pain with urination Triage Nursing Assessment: pt alert, walked in, resp easy, face mask in place, pt unable to void at this time, skin w/d/p Physician History: 68-year-old male history of throat cancer presents to our ED for evaluation of generalized weakness and falls. Patient reports he is supposed to be on Eliquis but is not taking Eliquis secondary to cost. Patient is here secondary to falls. Patient states he has been falling all week. Patient states he feels unsteady and weak. Patient fell 2 days ago and hit his chest on furniture. Patient has some tenderness to his breastbone. Patient denies loss of consciousness no severe headache. No neck pain. Cervical spine cleared clinically. Symptoms are progressive. Symptoms are moderate in intensity. No specific worsening improving factors. Patient also reports he is experiencing dysuria. Patient states his urine is very dark as well. No back pain no fever. Patient otherwise feels well. He voices no other complaints or concerns at this time. Portions of this note were created with voice recognition technology. There may be grammatical, spelling, punctuation or sound alike errors Timing/Duration: today Severity: moderate Modifying Factors: Improves With: nothing Associated Symptoms: denies symptoms Allergies/Adverse Reactions: No Known Drug Allergies Allergy (Verified 03/18/24 10:36) Home Medications: Atorvastatin Calcium [Lipitor] 80 mg PO HS 11/30/19 [History] Fenofibrate Nanocrystallized [Fenofibrate] 145 mg PO DAILY 11/30/19 [History] dilTIAZem HCL [Matzim LA] 180 mg PO DAILY 11/30/19 [History] Alprazolam [Xanax] 1 mg PO UD 03/18/24 [History] Aspirin EC 81 mg [Ecotrin 81 mg] 81 mg PO DAILY 03/18/24 [History] Buspirone HCl 15 mg PO UD 03/18/24 [History] Fexofenadine HCl 180 mg PO UD 03/18/24 [History] Multivitamin 1 each PO UD 03/18/24 [History] Hx Tetanus, Diphtheria Vaccination/Date Given: No Hx Influenza Vaccination/Date Given: Yes Hx Pneumococcal Vaccination/Date Given: No Immunizations Up to Date: Yes Travel Risk - International Travel Have you traveled outside of the country in past 3 weeks: No - Emerging Infectious Disease Are you exhibiting symptoms associated with any current EIDs: No - Review of Systems Constitutional: No Symptoms, No Fever, No Chills Eyes: No Symptoms Ears, Nose, & Throat: No Symptoms Respiratory: No Symptoms, No Cough, No Dyspnea Cardiac: No Symptoms, No Chest Pain, No Edema, No Syncope Abdominal/Gastrointestinal: No Symptoms, No Abdominal Pain, No Nausea, No Vomiting, No Diarrhea Genitourinary Symptoms: No Symptoms, No Dysuria Musculoskeletal: No Symptoms, No Back Pain, No Neck Pain Skin: No Symptoms, No Rash Neurological: No Symptoms, No Dizziness, No Focal Weakness, No Sensory Changes Psychological: No Symptoms Endocrine: No Symptoms Immunological/Allergic: No Symptoms All Other Systems: Reviewed and Negative - Past Medical History Pertinent Past Medical History: Yes Neurological History: No Pertinent History ENT History: Other Cardiac History: Arrhythmia, High Cholesterol Respiratory History: Sleep Apnea Endocrine Medical History: No Pertinent History Musculoskeletal History: No Pertinent History GI Medical History: No Pertinent History History: No Pertinent History Psycho-Social History: No Pertinent History Male Reproductive Disorders: No Pertinent History Other Medical History: throat CA, AFib, sleep apnea - Past Surgical History Past Surgical History: Yes Neuro Surgical History: No Pertinent History Cardiac: No Pertinent History Respiratory: No Pertinent History Gastrointestinal: No Pertinent History Genitourinary: No Pertinent History Musculoskeletal: Orthopedic Surgery Male Surgical History: No Pertinent History Other Surgical History: R leg procedure for chain saw injury, basal cell carcinoma, - Social History Smoking Status: Former smoker How long have you smoked: 30 years Exposure to second hand smoke: No Drug Use: none Patient Lives Alone: No - Social Determinants of Health Will the patient participate in the screening: Declined to provide - Nursing Vital Signs Nursing Vital Signs: Initial Vital Signs Temperature 97.0 F 05/03/24 11:25 Pulse Rate 91 H 05/03/24 11:25 Respiratory Rate 18 05/03/24 11:25 Blood Pressure 126/68 05/03/24 11:25 O2 Sat by Pulse Oximetry 98 05/03/24 11:25 Pain Scale Pain Intensity 4 - Physical Exam General Appearance: no apparent distress, alert, other Eye Exam: PERRL/EOMI, eyes nml inspection Ears, Nose, Throat Exam: normal ENT inspection, TMs normal, pharynx normal, moist mucous membranes, other (Dry appearing oral mucous membranes) Neck Exam: normal inspection, non-tender, supple, full range of motion Respiratory Exam: normal breath sounds, lungs clear, airway intact, No respiratory distress Cardiovascular Exam: regular rate/rhythm, normal heart sounds, normal peripheral pulses Gastrointestinal/Abdomen Exam: soft, normal bowel sounds, No tenderness, No mass Back Exam: normal inspection, normal range of motion, No CVA tenderness, No vertebral tenderness Extremity Exam: normal inspection, normal range of motion, pelvis stable Neurologic Exam: alert, oriented x 3, cooperative, normal mood/affect, nml cerebellar function, nml station & gait, sensation nml, No motor deficits Skin Exam: normal color, warm, dry, No rash Lymphatic Exam: No adenopathy SpO2 Interpretation: normal SpO2: 98 O2 Delivery: Room Air - Course Nursing assessment & vital signs reviewed: Yes EKG Interpreted by Me: RATE (93), Sinus Rhythm, NORMAL AXIS, NORMAL INTERVALS, NORMAL QRS - Radiology Exams Chest X-ray Interpretation: Teleradiologist Report (No acute findings) Ordered Tests: Active Orders 24 hr Category Date Time Status Outside Industrial Sales Representative STAT Care 05/03/24 12:03 Active EKG-ER Only STAT Care 05/03/24 12:02 Active IV Insertion STAT Care 05/03/24 12:02 Active Pulse Oximetry (ED) STAT Care 05/03/24 12:02 Active CHEST 1 VIEW (PORTABLE) Stat Exams 05/03/24 12:03 Completed CBC W DIFF Stat Lab 05/03/24 12:15 Completed CMP Stat Lab 05/03/24 12:15 Completed CULTURE,URINE Stat Lab 05/03/24 12:55 Received NT PRO BNPII Stat Lab 05/03/24 12:15 Completed TROPONIN Q4H Lab 05/03/24 12:15 Completed TROPONIN Q4H Lab 05/03/24 16:15 Ordered TROPONIN Q4H Lab 05/03/24 20:15 Ordered UA W/RFX UR CULTURE Stat Lab 05/03/24 12:55 Completed Medication Summary Generic Name Dose Route Start Last Admin Trade Name Freq PRN Reason Stop Dose Admin Levofloxacin/Dextrose 500 mg in 100 mls @ 100 mls/hr 05/03/24 13:19 Levofloxacin 500mg/100ml D5w IV 05/03/24 14:18 STAT STA Lab/Rad Data: Laboratory Result Diagrams 05/03/24 12:15 05/03/24 12:15 Laboratory Results 05/03/24 05/03/24 05/03/24 Range/Units 12:55 12:15 12:15 WBC (4.23-9.07) x10^3/uL RBC (4.63-6.08) x10^6/uL Hgb (13.7-17.5) g/dL Hct (40.1-51.0) % MCV (79.0-92.2) fL MCH (25.7-32.2) pg MCHC (32.3-36.5) g/dL RDW (11.6-14.4) % Plt Count (163-337) x10^3/uL MPV (9.4-12.4) fL Gran % (34.0-67.9) % Immature Gran % (Auto) (0.001-0.429) % Nucleat RBC Rel Count (0.00-0.2) % Eos # (Auto) (0.04-0.54) x10^3/uL Immature Gran # (Auto) (0.001-0.031) x10^3u/L Absolute Lymphs (auto) (1.32-3.57) x10^3/uL Absolute Monos (auto) (0.30-0.82) x10^3/uL Absolute Nucleated RBC (0.00-0.012) x10^3u/L Lymphocytes % (21.8-53.1) % Monocytes % (5.3-12.2) % Eosinophils % (0.8-7.0) % Basophils % (0.2-1.2) % Absolute Granulocytes (1.78-5.38) x10^3/uL Basophils # (0.01-0.08) x10^3/uL Sodium (135-145) mmol/L Potassium (3.5-5.1) mmol/L Chloride (98-107) mmol/L Carbon Dioxide (22-30) mmol/L Anion Gap (5-15) MEQ/L BUN (9-20) mg/dL Creatinine (0.66-1.25) mg/dL Estimated GFR ML/MIN Glucose (74-106) mg/dL Calcium (8.4-10.2) mg/dL Total Bilirubin (0.2-1.3) mg/dL AST (17-59) U/L ALT (0-50) U/L Alkaline Phosphatase (38-126) U/L Troponin I < 0.012 (0.000-0.033) ng/mL NT-Pro-B Natriuret Pep 597 (<300) pg/mL Serum Total Protein (6.3-8.2) g/dL Albumin (3.5-5.0) g/dL Urine Color Dark Yellow (Yellow) Urine Appearance Cloudy A (Clear) Urine pH 5.5 (4.6-8.0) Ur Specific [place] 1.015 (1.005-1.030) Urine Protein 30 (Negative) Urine Glucose (UA) Negative (Negative) mg/dL Urine Ketones Negative (Negative) Urine Blood Moderate A (Negative) Urine Nitrite Positive A (Negative) Urine Bilirubin Negative (Negative) Urine Urobilinogen 1.0 A (0.2) mg/dL Ur Leukocyte Esterase Moderate A (Negative) U Hyaline Cast (Auto) 11-20 (0-2) /LPF Urine Microscopic RBC 11-20 A (0-5) /HPF Urine Microscopic WBC >100 A (0-5) /HPF Ur Epithelial Cells None Seen (None Seen) /HPF Urine Bacteria Many A (None Seen) /HPF Urine Culture Reflexed YES (NO) Influenza Type A Ag NEGATIVE (NEGATIVE) Influenza Type B Ag NEGATIVE (NEGATIVE) RSV (PCR) NEGATIVE (NEGATIVE) SARS-CoV-2 (PCR) NEGATIVE (NEGATIVE) Slides for Path Review 05/03/24 05/03/24 Range/Units 12:15 12:15 WBC 9.5 H (4.23-9.07) x10^3/uL RBC 3.70 L (4.63-6.08) x10^6/uL Hgb 11.0 L (13.7-17.5) g/dL Hct 33.3 L (40.1-51.0) % MCV 90.0 (79.0-92.2) fL MCH 29.7 (25.7-32.2) pg MCHC 33.0 (32.3-36.5) g/dL RDW 14.3 (11.6-14.4) % Plt Count 227 (163-337) x10^3/uL MPV 9.4 (9.4-12.4) fL Gran % 88.4 H (34.0-67.9) % Immature Gran % (Auto) 0.6 H (0.001-0.429) % Nucleat RBC Rel Count 0.0 (0.00-0.2) % Eos # (Auto) 0 L (0.04-0.54) x10^3/uL Immature Gran # (Auto) 0.06 H (0.001-0.031) x10^3u/L Absolute Lymphs (auto) 0.28 L (1.32-3.57) x10^3/uL Absolute Monos (auto) 0.75 (0.30-0.82) x10^3/uL Absolute Nucleated RBC 0.00 (0.00-0.012) x10^3u/L Lymphocytes % 3.0 L (21.8-53.1) % Monocytes % 7.9 (5.3-12.2) % Eosinophils % 0.0 L (0.8-7.0) % Basophils % 0.1 L (0.2-1.2) % Absolute Granulocytes 8.38 H (1.78-5.38) x10^3/uL Basophils # 0.01 (0.01-0.08) x10^3/uL Sodium 131 L (135-145) mmol/L Potassium 3.6 (3.5-5.1) mmol/L Chloride 97 L (98-107) mmol/L Carbon Dioxide 22 (22-30) mmol/L Anion Gap 15.3 H (5-15) MEQ/L BUN 27 H (9-20) mg/dL Creatinine 1.43 H (0.66-1.25) mg/dL Estimated GFR 54.0 ML/MIN Glucose 130 H (74-106) mg/dL Calcium 8.9 (8.4-10.2) mg/dL Total Bilirubin 0.70 (0.2-1.3) mg/dL AST 61 H (17-59) U/L ALT 52 H (0-50) U/L Alkaline Phosphatase 64 (38-126) U/L Troponin I (0.000-0.033) ng/mL NT-Pro-B Natriuret Pep (<300) pg/mL Serum Total Protein 7.6 (6.3-8.2) g/dL Albumin 4.2 (3.5-5.0) g/dL Urine Color (Yellow) Urine Appearance (Clear) Urine pH (4.6-8.0) Ur Specific [place] (1.005-1.030) Urine Protein (Negative) Urine Glucose (UA) (Negative) mg/dL Urine Ketones (Negative) Urine Blood (Negative) Urine Nitrite (Negative) Urine Bilirubin (Negative) Urine Urobilinogen (0.2) mg/dL Ur Leukocyte Esterase (Negative) U Hyaline Cast (Auto) (0-2) /LPF Urine Microscopic RBC (0-5) /HPF Urine Microscopic WBC (0-5) /HPF Ur Epithelial Cells (None Seen) /HPF Urine Bacteria (None Seen) /HPF Urine Culture Reflexed (NO) Influenza Type A Ag (NEGATIVE) Influenza Type B Ag (NEGATIVE) RSV (PCR) (NEGATIVE) SARS-CoV-2 (PCR) (NEGATIVE) Slides for Path Review YES - Progress Progress: improved Progress Note: 68-year-old male presents to our ED secondary to recurrent falls generalized weakness. Patient stated he hit his chest on furniture during the fall 2 days ago. Chest x-ray shows no acute pathology. Laboratory workup reveals mild hyponatremia. Acute renal injury as well dehydration observed on laboratory workup.. IV fluids ordered. Urinalysis shows a significant urinary tract infection. Patient reports he feels weak. Patient will require hospitalization for further evaluation and treatment. Patient received a dose of Levaquin in our ED. Plan of care discussed with patient. He agrees to admission [facility] for further evaluation and treatment. Case discussed with hospitalist who accepts admission to observation at 1:24 PM. Portions of this note were created with voice recognition technology. There may be grammatical, spelling, punctuation or sound alike errors Complexity of problem addressed is moderate acute complicated. No critical care time. Complex of data reviewed and analyzed is extensive. Test ordered chest reviewed results analyzed and correlated clinically with history and physical exam. Management discussed with hospitalist who accepts admission to observation. Risk of complication and or risk of morbidity/mortality of patient management is high. Patient requires hospitalization for further evaluation and treatment. Vital stable. Time spent to admit patient is approximately 20 minutes. Plan of care established for shared decision making. No social determinants of health present to impede follow-up. Portions of this note were created with voice recognition technology. There may be grammatical, spelling, punctuation or sound alike errors 05/03/24 13:26 Counseled pt/family regarding: lab results, diagnosis, rad results - Departure Departure Disposition: Observation Clinical Impression: Fall, Generalized weakness, Hyponatremia, Acute renal injury, Dehydration, Urinary tract infection Condition: Stable Critical Care Time: No Referrals: HAILEY MONTE MD [Primary Care Provider] - Follow up/PCP as directed
--- NOTE | 2024-05-03 12:23 | XRAY ---
Indication: Pain. Comparison: February 04, 2023 Portable apical lordotic chest remains hyperinflated and clear. Heart not enlarged. Bony thorax intact again with mild degenerative changes. No new/acute findings.
[2024-05-03 12:24] LABS: Absolute Neutrophil Ct (ANC) 8.38 x10^3/uL (1.78-5.38); BASOPHIL % 0.1 % (0.2-1.2); Basophil (Absolute #) 0.01 x10^3/uL (0.01-0.08); Eosinophil (Absolute #) 0 x10^3/uL (0.04-0.54); Hematocrit 33.3 % (40.1-51.0); IMMATURE GRAN # 0.06 x10^3u/L (0.001-0.031); IMMATURE GRAN % 0.6 % (0.001-0.429); Lymphocyte (Absolute #) 0.28 x10^3/uL (1.32-3.57); Mean Corpuscular Hemoglobin 29.7 pg (25.7-32.2); Mean Platelet Volume 9.4 fL (9.4-12.4); Monocyte (Absolute #) 0.75 x10^3/uL (0.30-0.82); Monocytes % 7.9 % (5.3-12.2); Neutrophil % 88.4 % (34.0-67.9); Platelet Count 227 x10^3/uL (163-337); Red Cell Distribution Width 14.3 % (11.6-14.4); White Blood Count 9.5 x10^3/uL (4.23-9.07)
[2024-05-03 12:41] LABS: ALBUMIN 4.2 g/dL (3.5-5.0); ANION GAP 15.3 MEQ/L (5-15); BILIRUBIN,TOTAL 0.7 mg/dL (0.2-1.3); Calcium 8.9 mg/dL (8.4-10.2); Creatinine 1 1.43 mg/dL (0.66-1.25); Potassium 3.6 mmol/L (3.5-5.1); Total Protein 7.6 g/dL (6.3-8.2)
[2024-05-03 12:47] LABS: Slide Review 1 YES
[2024-05-03 12:52] LABS: NT PRO BNPII 597 pg/mL (<300); TROPONIN < 0.012 ng/mL (0.000-0.033)
[2024-05-03 12:58] LABS: INFLUENZA A NEGATIVE (NEGATIVE); INFLUENZA B NEGATIVE (NEGATIVE); RESPIRATORY SYNCTIAL VIRUS NEGATIVE (NEGATIVE); SARS-CoV-2 Xpert Express NEGATIVE (NEGATIVE)
[2024-05-03 13:14] LABS: Appearance Cloudy (Clear); Bacteria Many /HPF (None Seen); Bilirubin Negative (Negative); Blood Moderate (Negative); Epithelial Cells None Seen /HPF (None Seen); Glucose, Urine Negative (Negative); Ketones Negative (Negative); Leukocyte Esterase Moderate (Negative); Nitrite Positive (Negative); Ph 5.5 (4.6-8.0); Protein,Urine Dip 30 (Negative); Specific Gravity 1.015 (1.005-1.030); WBC >100 /HPF (0-5)
[2024-05-03] MEDS ORDERED: Levofloxacin 500MG/100ML D5W 500 MG/100 ML BAG IV ONE (13:31)
[2024-05-03] MEDS: Levofloxacin 500MG/100ML D5W 500 MG/100 ML BAG IV STA (13:34)
[2024-05-03] MEDS: Sodium Chloride 0.9% 1000 ML 1,000 ML IV SCH (13:35)
--- NOTE | 2024-05-03 14:55 | PCM.HP ---
History of Present Illness - Chief Complaint Chief Complaint: Urinary tract infection, acute renal injury Date: 05/03/24 History of Present Illness: Mr. Welch is a 68 year old male with a pmhx of HLD, emphysema, AFIB (on Eliquis), tonsil cancer, and JOSE ELIAS who presented to ED 05/03/24 with complaints of dysuria, generalized weakness, and falls. Patient reports that symptoms began approximately one week ago. He had noticed burning and frequency with urination and progressively became weak with an unsteady gait. He also reports vision changes, dizziness when standing, slurred speech, and trouble finding words - but this has been going on for several years. He states he has AFIB and has been prescribed Eliquis but has been off of it for about three weeks now due to cost. He denies fever, sob, cough, abdominal pain, n/v/d, headache, or hematuria. No recent sick contacts. Upon arrival to ED, vitals stable. CXR with no acute findings. Labs remarkable for mild leukocytosis with wbc at 9.4, normocytic anemia with hgb at 11.0, mild hyponatremia at 131, elevated anion GAP at 15.3, and SOWMYA with creat at 1.43 (baseline around 1.2-1.3). UA suspicious for infection. Respiratory panel negative. Levofloxacin given in ED. - Review of Systems Constitutional: Fatigue, Weakness Eyes: No Symptoms Ears, Nose, & Throat: No Symptoms Respiratory: No Symptoms Cardiac: No Symptoms Abdominal/Gastrointestinal: No Symptoms Genitourinary Symptoms: Dysuria, Frequency Musculoskeletal: No Symptoms Skin: No Symptoms Neurological: Dizziness, Gait Changes, Speech Changes Psychological: No Symptoms Endocrine: No Symptoms Hematologic/Lymphatic: No Symptoms Immunological/Allergic: No Symptoms Medications & Allergies Home Medications: Home Medication List Atorvastatin Calcium [Lipitor] 80 mg PO HS 11/30/19 [History Confirmed 03/18/24] Fenofibrate Nanocrystallized [Fenofibrate] 145 mg PO DAILY 11/30/19 [History Confirmed 03/18/24] dilTIAZem HCL [Matzim LA] 180 mg PO DAILY 11/30/19 [History Confirmed 03/18/24] Apixaban [Eliquis] 5 mg PO BID #0 12/02/19 [Rx Confirmed 03/18/24] Alprazolam [Xanax] 1 mg PO UD 03/18/24 [History Confirmed 03/18/24] Aspirin EC 81 mg [Ecotrin 81 mg] 81 mg PO DAILY 03/18/24 [History Confirmed 03/18/24] Buspirone HCl 15 mg PO UD 03/18/24 [History Confirmed 03/18/24] Fexofenadine HCl 180 mg PO UD 03/18/24 [History Confirmed 03/18/24] Multivitamin 1 each PO UD 03/18/24 [History Confirmed 03/18/24] Allergies/Adverse Reactions: Allergies Allergy/AdvReac Type Severity Reaction Status Date / Time No Known Drug Allergies Allergy Verified 03/18/24 10:36 - Past Medical History Past Medical History: Yes Neurological History: No Pertinent History ENT History: Other Cardiac History: Arrhythmia, High Cholesterol Respiratory History: Emphysema, Sleep Apnea Endocrine Medical History: No Pertinent History Musculoskelatal History: No Pertinent History GI Medical History: No Pertinent History History: No Pertinent History Pyscho-Social History: No Pertinent History Male Reproductive Disorders: No Pertinent History Comment: throat CA, AFib, sleep apnea - Past Surgical History Past Surgical History: Yes Neuro Surgical History: No Pertinent History Cardiac History: No Pertinent History Respiratory Surgery: No Pertinent History GI Surgical History: No Pertinent History Genitourinary Surgical Hx: No Pertinent History Musculskeletal Surgical Hx: Orthopedic Surgery Male Surgical History: No Pertinent History Other Surgical History: R leg procedure for chain saw injury, basal cell carcinoma, Significant Family History: cancer (mom - colon cancer) - Social History Smoking Status: Former smoker How long have you smoked: 30 years Exposure to second hand smoke: No Alcohol: Occasionally Drug Use: none - Social Determinants of Health Will the patient participate in the screening: Declined to provide - Physical Exam Vital Signs: Vital Signs - 24 hr Temp Pulse Resp BP Pulse Ox 05/03/24 14:09 74 18 97 05/03/24 13:32 98 05/03/24 13:21 70 18 114/68 96 05/03/24 13:05 88 20 120/64 97 05/03/24 11:25 97.0 F 91 H 18 126/68 98 General Appearance: no apparent distress Neurologic Exam: alert, oriented x 3, cooperative Eye Exam: PERRL/EOMI Ears, Nose, Throat Exam: normal ENT inspection Neck Exam: normal inspection Respiratory Exam: normal breath sounds, lungs clear Cardiovascular Exam: regular rate/rhythm, normal heart sounds Gastrointestinal/Abdomen Exam: soft, normal bowel sounds Rectal Exam: deferred Back Exam: normal inspection Extremity Exam: normal inspection Skin Exam: normal color Results - Labs Lab/Micro Results: Lab Results-Last 24 Hours 05/03/24 05/03/24 05/03/24 Range/Units 12:15 12:15 12:15 WBC 9.5 H (4.23-9.07) x10^3/uL RBC 3.70 L (4.63-6.08) x10^6/uL Hgb 11.0 L (13.7-17.5) g/dL Hct 33.3 L (40.1-51.0) % MCV 90.0 (79.0-92.2) fL MCH 29.7 (25.7-32.2) pg MCHC 33.0 (32.3-36.5) g/dL RDW 14.3 (11.6-14.4) % Plt Count 227 (163-337) x10^3/uL MPV 9.4 (9.4-12.4) fL Gran % 88.4 H (34.0-67.9) % Immature Gran % (Auto) 0.6 H (0.001-0.429) % Nucleat RBC Rel Count 0.0 (0.00-0.2) % Eos # (Auto) 0 L (0.04-0.54) x10^3/uL Immature Gran # (Auto) 0.06 H (0.001-0.031) x10^3u/L Absolute Lymphs (auto) 0.28 L (1.32-3.57) x10^3/uL Absolute Monos (auto) 0.75 (0.30-0.82) x10^3/uL Absolute Nucleated RBC 0.00 (0.00-0.012) x10^3u/L Lymphocytes % 3.0 L (21.8-53.1) % Monocytes % 7.9 (5.3-12.2) % Eosinophils % 0.0 L (0.8-7.0) % Basophils % 0.1 L (0.2-1.2) % Absolute Granulocytes 8.38 H (1.78-5.38) x10^3/uL Basophils # 0.01 (0.01-0.08) x10^3/uL Sodium 131 L (135-145) mmol/L Potassium 3.6 (3.5-5.1) mmol/L Chloride 97 L (98-107) mmol/L Carbon Dioxide 22 (22-30) mmol/L Anion Gap 15.3 H (5-15) MEQ/L BUN 27 H (9-20) mg/dL Creatinine 1.43 H (0.66-1.25) mg/dL Estimated GFR 54.0 ML/MIN Glucose 130 H (74-106) mg/dL Calcium 8.9 (8.4-10.2) mg/dL Total Bilirubin 0.70 (0.2-1.3) mg/dL AST 61 H (17-59) U/L ALT 52 H (0-50) U/L Alkaline Phosphatase 64 (38-126) U/L Troponin I < 0.012 (0.000-0.033) ng/mL NT-Pro-B Natriuret Pep 597 (<300) pg/mL Serum Total Protein 7.6 (6.3-8.2) g/dL Albumin 4.2 (3.5-5.0) g/dL Urine Color (Yellow) Urine Appearance (Clear) Urine pH (4.6-8.0) Ur Specific Coila (1.005-1.030) Urine Protein (Negative) Urine Glucose (UA) (Negative) mg/dL Urine Ketones (Negative) Urine Blood (Negative) Urine Nitrite (Negative) Urine Bilirubin (Negative) Urine Urobilinogen (0.2) mg/dL Ur Leukocyte Esterase (Negative) U Hyaline Cast (Auto) (0-2) /LPF Urine Microscopic RBC (0-5) /HPF Urine Microscopic WBC (0-5) /HPF Ur Epithelial Cells (None Seen) /HPF Urine Bacteria (None Seen) /HPF Urine Culture Reflexed (NO) Influenza Type A Ag (NEGATIVE) Influenza Type B Ag (NEGATIVE) RSV (PCR) (NEGATIVE) SARS-CoV-2 (PCR) (NEGATIVE) Slides for Path Review YES 05/03/24 05/03/24 Range/Units 12:15 12:55 WBC (4.23-9.07) x10^3/uL RBC (4.63-6.08) x10^6/uL Hgb (13.7-17.5) g/dL Hct (40.1-51.0) % MCV (79.0-92.2) fL MCH (25.7-32.2) pg MCHC (32.3-36.5) g/dL RDW (11.6-14.4) % Plt Count (163-337) x10^3/uL MPV (9.4-12.4) fL Gran % (34.0-67.9) % Immature Gran % (Auto) (0.001-0.429) % Nucleat RBC Rel Count (0.00-0.2) % Eos # (Auto) (0.04-0.54) x10^3/uL Immature Gran # (Auto) (0.001-0.031) x10^3u/L Absolute Lymphs (auto) (1.32-3.57) x10^3/uL Absolute Monos (auto) (0.30-0.82) x10^3/uL Absolute Nucleated RBC (0.00-0.012) x10^3u/L Lymphocytes % (21.8-53.1) % Monocytes % (5.3-12.2) % Eosinophils % (0.8-7.0) % Basophils % (0.2-1.2) % Absolute Granulocytes (1.78-5.38) x10^3/uL Basophils # (0.01-0.08) x10^3/uL Sodium (135-145) mmol/L Potassium (3.5-5.1) mmol/L Chloride (98-107) mmol/L Carbon Dioxide (22-30) mmol/L Anion Gap (5-15) MEQ/L BUN (9-20) mg/dL Creatinine (0.66-1.25) mg/dL Estimated GFR ML/MIN Glucose (74-106) mg/dL Calcium (8.4-10.2) mg/dL Total Bilirubin (0.2-1.3) mg/dL AST (17-59) U/L ALT (0-50) U/L Alkaline Phosphatase (38-126) U/L Troponin I (0.000-0.033) ng/mL NT-Pro-B Natriuret Pep (<300) pg/mL Serum Total Protein (6.3-8.2) g/dL Albumin (3.5-5.0) g/dL Urine Color Dark Yellow (Yellow) Urine Appearance Cloudy A (Clear) Urine pH 5.5 (4.6-8.0) Ur Specific Coila 1.015 (1.005-1.030) Urine Protein 30 (Negative) Urine Glucose (UA) Negative (Negative) mg/dL Urine Ketones Negative (Negative) Urine Blood Moderate A (Negative) Urine Nitrite Positive A (Negative) Urine Bilirubin Negative (Negative) Urine Urobilinogen 1.0 A (0.2) mg/dL Ur Leukocyte Esterase Moderate A (Negative) U Hyaline Cast (Auto) 11-20 (0-2) /LPF Urine Microscopic RBC 11-20 A (0-5) /HPF Urine Microscopic WBC >100 A (0-5) /HPF Ur Epithelial Cells None Seen (None Seen) /HPF Urine Bacteria Many A (None Seen) /HPF Urine Culture Reflexed YES (NO) Influenza Type A Ag NEGATIVE (NEGATIVE) Influenza Type B Ag NEGATIVE (NEGATIVE) RSV (PCR) NEGATIVE (NEGATIVE) SARS-CoV-2 (PCR) NEGATIVE (NEGATIVE) Slides for Path Review - Radiology Impressions Radiology Exams & Impressions: Radiology Procedures Category Date Time Status CHEST 1 VIEW (PORTABLE) Stat Exams 05/03/24 12:03 Completed Assessment/Plan (1) Urinary tract infection Current Visit: Yes Status: Acute Assessment & Plan: -UA suspicious for infection Levaquin started in ED, will continue with Ceftriaxone -follow culture -no h/o of UTI Code(s): N39.0 - URINARY TRACT INFECTION, SITE NOT SPECIFIED (2) Dizziness Current Visit: Yes Status: Acute Assessment & Plan: -orthostatic vitals -echo -CT head -PT/OT -IVF -EKG with NS -Med review Code(s): R42 - DIZZINESS AND GIDDINESS (3) Hyponatremia Current Visit: Yes Status: Chronic Assessment & Plan: -Mild most likely due to hypovolemia -IVF Code(s): E87.1 - HYPO-OSMOLALITY AND HYPONATREMIA (4) Recurrent falls Current Visit: Yes Status: Acute Assessment & Plan: -2/2 to weakness ? infectious etiology with UTI -CT head -PT evaluation Code(s): R29.6 - REPEATED FALLS (5) Generalized weakness Current Visit: Yes Status: Acute Assessment & Plan: -see recurrent falls Code(s): R53.1 - WEAKNESS (6) Acute renal injury Current Visit: Yes Status: Acute Assessment & Plan: -creat reviewed at 1.43 - baseline around 1.2-1.3 -Monitor renal/lytes daily -Avoid nephrotoxic agents DAVID/ARB/Diuretics/NSAIDS- change levaquin to ceftriaxone Code(s): N17.9 - ACUTE KIDNEY FAILURE, UNSPECIFIED (7) Afib Current Visit: Yes Status: Acute Assessment & Plan: -Continue home meds -Will discuss with Dr. Thompson tomorrow regarding Eliquis -may need to follow up OP for med changes - CM/ACO for help with cost -EKG NS -Tele Code(s): I48.91 - UNSPECIFIED ATRIAL FIBRILLATION (8) JOSE ELIAS (obstructive sleep apnea) Current Visit: Yes Status: Acute Assessment & Plan: -CPAP at home is broken - will continue here and try to help get his fixed at home Code(s): G47.33 - OBSTRUCTIVE SLEEP APNEA (ADULT) (PEDIATRIC) (9) Tonsil cancer Current Visit: Yes Status: Acute Assessment & Plan: -S/P radiation and chemo - 5.5 years ago - Follows with Dr. Osorio OP with surveillance VTE: lovenox PPI: protonix Dispo: 1-2 days Code status: Full code Telemedicine Encounter - Telemedicine Encounter Telemedicine Encounter: "The entirety of this encounter was performed via Telemedicine" This visit was performed using real-time audio and video connection between my location and thepatients locationwith the assistance of a surrogateat the patients location. Written or verbal consent was obtained from the patient/guardian to perform this visit [facility] technology. Any patient questions regarding the telemedicine interaction were answered.
[2024-05-03] MEDS ORDERED: Zofran 4 MG/2 ML VIAL IV PRN (15:05)
--- NOTE | 2024-05-03 15:47 | XRAY ---
Indication: Dizziness. Weakness. Speech changes. Multiple contiguous axial images obtained through the abdomen without contrast. Comparison: January 21, 2021 Age-appropriate global atrophy with now mild periventricular degenerative micro-ischemia bilaterally. No acute intracranial hemorrhage, abnormal extra-axial fluid collection, or mass effect. Fourth ventricle is midline without hydrocephalus. Bony calvarium intact. Visualized paranasal sinuses and mastoid air cells are clear. Impression: Nonacute senile brain.
[2024-05-03] MEDS: TYLENOL 325 MG PO PRN (20:16)
[2024-05-03] MEDS ORDERED: Wellbutrin SR 150 MG ONE (20:48)
[2024-05-03] MEDS: ZOCOR 20MG PO SCH (21:10)
[2024-05-03] MEDS: Wellbutrin XL 150 MG PO SCH (21:10)
[2024-05-03] MEDS: MELATONIN PO PRN (21:10)
[2024-05-03] MEDS: BUSPAR 5 MG PO SCH (21:10)
[2024-05-03] MEDS: HEPARIN 5000 UNITS/0.5 ML (HIGH RISK MED) SQ SCH (21:10)
[2024-05-03] MEDS ORDERED: NON-FORMULARY ITEM (Buspirone Hcl [Buspirone Hcl] 30 MG Tablet) PO SCH (22:00)
[2024-05-03] MEDS ORDERED: NON-FORMULARY ITEM (Atorvastatin Calcium [Lipitor] 80 MG Tablet) PO SCH (22:00)
[2024-05-04 04:40] LABS: Absolute Neutrophil Ct (ANC) 9.61 x10^3/uL (1.78-5.38); BASOPHIL % 0.2 % (0.2-1.2); Basophil (Absolute #) 0.02 x10^3/uL (0.01-0.08); Eosinophil % 0.1 % (0.8-7.0); Eosinophil (Absolute #) 0.01 x10^3/uL (0.04-0.54); Hematocrit 32.6 % (40.1-51.0); Hemoglobin 10.7 g/dL (13.7-17.5); IMMATURE GRAN # 0.08 x10^3u/L (0.001-0.031); IMMATURE GRAN % 0.7 % (0.001-0.429); Lymphocyte (Absolute #) 0.85 x10^3/uL (1.32-3.57); Lymphocytes % 7.2 % (21.8-53.1); Mean Cell Volume 89.6 fL (79.0-92.2); Mean Corpuscular Hemoglobin 29.4 pg (25.7-32.2); Mean Corpuscular Hgb Concent. 32.8 g/dL (32.3-36.5); Mean Platelet Volume 9.5 fL (9.4-12.4); Monocyte (Absolute #) 1.21 x10^3/uL (0.30-0.82); Monocytes % 10.3 % (5.3-12.2); Neutrophil % 81.5 % (34.0-67.9); Platelet Count 241 x10^3/uL (163-337); Red Blood Count 3.64 x10^6/uL (4.63-6.08); Red Cell Distribution Width 14.7 % (11.6-14.4); White Blood Count 11.8 x10^3/uL (4.23-9.07)
[2024-05-04 05:12] LABS: ALBUMIN 3.8 g/dL (3.5-5.0); ANION GAP 12.4 MEQ/L (5-15); BILIRUBIN,TOTAL 0.5 mg/dL (0.2-1.3); Calcium 8.5 mg/dL (8.4-10.2); Creatinine 1 1.21 mg/dL (0.66-1.25); Potassium 3.5 mmol/L (3.5-5.1); Total Protein 7.1 g/dL (6.3-8.2)
--- NOTE | 2024-05-04 05:25 | PCM.NOTE ---
Date and Time: 05/04/24 0520 Subjective Assessment: Mr. Welch is a 68 year old male with a pmhx of HLD, emphysema, AFIB (on Eliquis), tonsil cancer, and JOSE ELIAS who presented to ED 05/03/24 with complaints of dysuria, generalized weakness, and falls. Patient reports that symptoms began approximately one week ago. He had noticed burning and frequency with urination and progressively became weak with an unsteady gait. He also reports vision changes, dizziness when standing, slurred speech, and trouble finding words - but this has been going on for several years. He states he has AFIB and has been prescribed Eliquis but has been off of it for about three weeks now due to cost. He denies fever, sob, cough, abdominal pain, n/v/d, headache, or hematuria. No recent sick contacts. Upon arrival to ED, vitals stable. CXR with no acute findings. Labs remarkable for mild leukocytosis with wbc at 9.4, normocytic anemia with hgb at 11.0, mild hyponatremia at 131, elevated anion GAP at 15.3, and SOWMYA with creat at 1.43 (baseline around 1.2-1.3). UA suspicious for infection. Respiratory panel negative. Levofloxacin given in ED. 05/04/23: Patient febrile overnight. Patient also became unsteady when transporting to the restroom and fell per RN report. No trauma. CT head negative. Dysuria resolved. WBC remains elevated today. Culture growing gram - ID with sensitivity pending. Will get neuro consult and brain MRI. Patient at baseline creat. Denies fever,cough, sob, cp, abdominal pain, YOUNG, dizziness, N/V/D. - Review of Systems Constitutional: Weakness Eyes: No Symptoms Ears, Nose, & Throat: No Symptoms Respiratory: No Symptoms Cardiac: No Symptoms Abdominal/Gastrointestinal: No Symptoms Genitourinary Symptoms: No Symptoms Musculoskeletal: No Symptoms Skin: No Symptoms Neurological: Dizziness, Gait Changes, Speech Changes Psychological: No Symptoms Endocrine: No Symptoms Hematologic/Lymphatic: No Symptoms Immunological/Allergic: No Symptoms Objective Exam General Appearance: no apparent distress Neurologic Exam: alert, oriented x 3, cooperative Skin Exam: normal color Eye Exam: PERRL Ears, Nose, Throat Exam: normal ENT inspection Neck Exam: normal inspection Respiratory Exam: normal breath sounds, lungs clear Cardiovascular Exam: regular rate/rhythm, normal heart sounds Gastrointestinal/Abdomen Exam: soft, normal bowel sounds Extremity Exam: normal inspection Back Exam: normal inspection Male Genitalia Exam: deferred Rectal Exam: deferred Objective Data Vital Signs: Vital Signs - 24 hr Temp Pulse Resp BP Pulse Ox 05/04/24 03:20 97.5 F 80 18 105/64 96 05/04/24 00:00 98.6 F 74 20 95/52 92 L 05/03/24 21:14 100.2 F 05/03/24 20:00 102.0 F 95 H 22 116/58 95 05/03/24 18:32 93 L 05/03/24 17:19 101.8 F 95 H 23 116/78 95 05/03/24 16:00 98.9 F 95 H 23 116/78 95 05/03/24 14:48 101.8 F 95 H 20 116/78 95 05/03/24 14:09 74 18 97 05/03/24 13:32 98 05/03/24 13:21 70 18 114/68 96 05/03/24 13:05 88 20 120/64 97 05/03/24 11:25 97.0 F 91 H 18 126/68 98 Pain Assessment - Last Documented Pain Intensity 5 Intake and Output: Intake & Output 05/01/24 05/02/24 05/03/24 05/04/24 11:59 11:59 11:59 11:59 Intake Total 1554 Output Total 425 Balance 1129 Weight 77.5 kg 76 kg Lab Results: Lab Results-Last 24 Hours 05/03/24 05/03/24 05/03/24 Range/Units 12:15 12:15 12:15 WBC 9.5 H (4.23-9.07) x10^3/uL RBC 3.70 L (4.63-6.08) x10^6/uL Hgb 11.0 L (13.7-17.5) g/dL Hct 33.3 L (40.1-51.0) % MCV 90.0 (79.0-92.2) fL MCH 29.7 (25.7-32.2) pg MCHC 33.0 (32.3-36.5) g/dL RDW 14.3 (11.6-14.4) % Plt Count 227 (163-337) x10^3/uL MPV 9.4 (9.4-12.4) fL Gran % 88.4 H (34.0-67.9) % Immature Gran % (Auto) 0.6 H (0.001-0.429) % Nucleat RBC Rel Count 0.0 (0.00-0.2) % Eos # (Auto) 0 L (0.04-0.54) x10^3/uL Immature Gran # (Auto) 0.06 H (0.001-0.031) x10^3u/L Absolute Lymphs (auto) 0.28 L (1.32-3.57) x10^3/uL Absolute Monos (auto) 0.75 (0.30-0.82) x10^3/uL Absolute Nucleated RBC 0.00 (0.00-0.012) x10^3u/L Lymphocytes % 3.0 L (21.8-53.1) % Monocytes % 7.9 (5.3-12.2) % Eosinophils % 0.0 L (0.8-7.0) % Basophils % 0.1 L (0.2-1.2) % Absolute Granulocytes 8.38 H (1.78-5.38) x10^3/uL Basophils # 0.01 (0.01-0.08) x10^3/uL Sodium 131 L (135-145) mmol/L Potassium 3.6 (3.5-5.1) mmol/L Chloride 97 L (98-107) mmol/L Carbon Dioxide 22 (22-30) mmol/L Anion Gap 15.3 H (5-15) MEQ/L BUN 27 H (9-20) mg/dL Creatinine 1.43 H (0.66-1.25) mg/dL Estimated GFR 54.0 ML/MIN Glucose 130 H (74-106) mg/dL Calcium 8.9 (8.4-10.2) mg/dL Total Bilirubin 0.70 (0.2-1.3) mg/dL AST 61 H (17-59) U/L ALT 52 H (0-50) U/L Alkaline Phosphatase 64 (38-126) U/L Troponin I < 0.012 (0.000-0.033) ng/mL NT-Pro-B Natriuret Pep 597 (<300) pg/mL Serum Total Protein 7.6 (6.3-8.2) g/dL Albumin 4.2 (3.5-5.0) g/dL TSH 3rd Generation (0.470-4.680) mIU/L Urine Color (Yellow) Urine Appearance (Clear) Urine pH (4.6-8.0) Ur Specific Center (1.005-1.030) Urine Protein (Negative) Urine Glucose (UA) (Negative) mg/dL Urine Ketones (Negative) Urine Blood (Negative) Urine Nitrite (Negative) Urine Bilirubin (Negative) Urine Urobilinogen (0.2) mg/dL Ur Leukocyte Esterase (Negative) U Hyaline Cast (Auto) (0-2) /LPF Urine Microscopic RBC (0-5) /HPF Urine Microscopic WBC (0-5) /HPF Ur Epithelial Cells (None Seen) /HPF Urine Bacteria (None Seen) /HPF Urine Culture Reflexed (NO) Influenza Type A Ag (NEGATIVE) Influenza Type B Ag (NEGATIVE) RSV (PCR) (NEGATIVE) SARS-CoV-2 (PCR) (NEGATIVE) Slides for Path Review YES 05/03/24 05/03/24 05/03/24 Range/Units 12:15 12:15 12:55 WBC (4.23-9.07) x10^3/uL RBC (4.63-6.08) x10^6/uL Hgb (13.7-17.5) g/dL Hct (40.1-51.0) % MCV (79.0-92.2) fL MCH (25.7-32.2) pg MCHC (32.3-36.5) g/dL RDW (11.6-14.4) % Plt Count (163-337) x10^3/uL MPV (9.4-12.4) fL Gran % (34.0-67.9) % Immature Gran % (Auto) (0.001-0.429) % Nucleat RBC Rel Count (0.00-0.2) % Eos # (Auto) (0.04-0.54) x10^3/uL Immature Gran # (Auto) (0.001-0.031) x10^3u/L Absolute Lymphs (auto) (1.32-3.57) x10^3/uL Absolute Monos (auto) (0.30-0.82) x10^3/uL Absolute Nucleated RBC (0.00-0.012) x10^3u/L Lymphocytes % (21.8-53.1) % Monocytes % (5.3-12.2) % Eosinophils % (0.8-7.0) % Basophils % (0.2-1.2) % Absolute Granulocytes (1.78-5.38) x10^3/uL Basophils # (0.01-0.08) x10^3/uL Sodium (135-145) mmol/L Potassium (3.5-5.1) mmol/L Chloride (98-107) mmol/L Carbon Dioxide (22-30) mmol/L Anion Gap (5-15) MEQ/L BUN (9-20) mg/dL Creatinine (0.66-1.25) mg/dL Estimated GFR ML/MIN Glucose (74-106) mg/dL Calcium (8.4-10.2) mg/dL Total Bilirubin (0.2-1.3) mg/dL AST (17-59) U/L ALT (0-50) U/L Alkaline Phosphatase (38-126) U/L Troponin I (0.000-0.033) ng/mL NT-Pro-B Natriuret Pep (<300) pg/mL Serum Total Protein (6.3-8.2) g/dL Albumin (3.5-5.0) g/dL TSH 3rd Generation 1.309 (0.470-4.680) mIU/L Urine Color Dark Yellow (Yellow) Urine Appearance Cloudy A (Clear) Urine pH 5.5 (4.6-8.0) Ur Specific Center 1.015 (1.005-1.030) Urine Protein 30 (Negative) Urine Glucose (UA) Negative (Negative) mg/dL Urine Ketones Negative (Negative) Urine Blood Moderate A (Negative) Urine Nitrite Positive A (Negative) Urine Bilirubin Negative (Negative) Urine Urobilinogen 1.0 A (0.2) mg/dL Ur Leukocyte Esterase Moderate A (Negative) U Hyaline Cast (Auto) 11-20 (0-2) /LPF Urine Microscopic RBC 11-20 A (0-5) /HPF Urine Microscopic WBC >100 A (0-5) /HPF Ur Epithelial Cells None Seen (None Seen) /HPF Urine Bacteria Many A (None Seen) /HPF Urine Culture Reflexed YES (NO) Influenza Type A Ag NEGATIVE (NEGATIVE) Influenza Type B Ag NEGATIVE (NEGATIVE) RSV (PCR) NEGATIVE (NEGATIVE) SARS-CoV-2 (PCR) NEGATIVE (NEGATIVE) Slides for Path Review 05/03/24 05/03/24 05/04/24 Range/Units 16:25 20:22 04:25 WBC 11.8 H (4.23-9.07) x10^3/uL RBC 3.64 L (4.63-6.08) x10^6/uL Hgb 10.7 L (13.7-17.5) g/dL Hct 32.6 L (40.1-51.0) % MCV 89.6 (79.0-92.2) fL MCH 29.4 (25.7-32.2) pg MCHC 32.8 (32.3-36.5) g/dL RDW 14.7 H (11.6-14.4) % Plt Count 241 (163-337) x10^3/uL MPV 9.5 (9.4-12.4) fL Gran % 81.5 H (34.0-67.9) % Immature Gran % (Auto) 0.7 H (0.001-0.429) % Nucleat RBC Rel Count 0.0 (0.00-0.2) % Eos # (Auto) 0.01 L (0.04-0.54) x10^3/uL Immature Gran # (Auto) 0.08 H (0.001-0.031) x10^3u/L Absolute Lymphs (auto) 0.85 L (1.32-3.57) x10^3/uL Absolute Monos (auto) 1.21 H (0.30-0.82) x10^3/uL Absolute Nucleated RBC 0.00 (0.00-0.012) x10^3u/L Lymphocytes % 7.2 L (21.8-53.1) % Monocytes % 10.3 (5.3-12.2) % Eosinophils % 0.1 L (0.8-7.0) % Basophils % 0.2 (0.2-1.2) % Absolute Granulocytes 9.61 H (1.78-5.38) x10^3/uL Basophils # 0.02 (0.01-0.08) x10^3/uL Sodium (135-145) mmol/L Potassium (3.5-5.1) mmol/L Chloride (98-107) mmol/L Carbon Dioxide (22-30) mmol/L Anion Gap (5-15) MEQ/L BUN (9-20) mg/dL Creatinine (0.66-1.25) mg/dL Estimated GFR ML/MIN Glucose (74-106) mg/dL Calcium (8.4-10.2) mg/dL Total Bilirubin (0.2-1.3) mg/dL AST (17-59) U/L ALT (0-50) U/L Alkaline Phosphatase (38-126) U/L Troponin I < 0.012 < 0.012 (0.000-0.033) ng/mL NT-Pro-B Natriuret Pep (<300) pg/mL Serum Total Protein (6.3-8.2) g/dL Albumin (3.5-5.0) g/dL TSH 3rd Generation (0.470-4.680) mIU/L Urine Color (Yellow) Urine Appearance (Clear) Urine pH (4.6-8.0) Ur Specific Center (1.005-1.030) Urine Protein (Negative) Urine Glucose (UA) (Negative) mg/dL Urine Ketones (Negative) Urine Blood (Negative) Urine Nitrite (Negative) Urine Bilirubin (Negative) Urine Urobilinogen (0.2) mg/dL Ur Leukocyte Esterase (Negative) U Hyaline Cast (Auto) (0-2) /LPF Urine Microscopic RBC (0-5) /HPF Urine Microscopic WBC (0-5) /HPF Ur Epithelial Cells (None Seen) /HPF Urine Bacteria (None Seen) /HPF Urine Culture Reflexed (NO) Influenza Type A Ag (NEGATIVE) Influenza Type B Ag (NEGATIVE) RSV (PCR) (NEGATIVE) SARS-CoV-2 (PCR) (NEGATIVE) Slides for Path Review 05/04/24 Range/Units 04:25 WBC (4.23-9.07) x10^3/uL RBC (4.63-6.08) x10^6/uL Hgb (13.7-17.5) g/dL Hct (40.1-51.0) % MCV (79.0-92.2) fL MCH (25.7-32.2) pg MCHC (32.3-36.5) g/dL RDW (11.6-14.4) % Plt Count (163-337) x10^3/uL MPV (9.4-12.4) fL Gran % (34.0-67.9) % Immature Gran % (Auto) (0.001-0.429) % Nucleat RBC Rel Count (0.00-0.2) % Eos # (Auto) (0.04-0.54) x10^3/uL Immature Gran # (Auto) (0.001-0.031) x10^3u/L Absolute Lymphs (auto) (1.32-3.57) x10^3/uL Absolute Monos (auto) (0.30-0.82) x10^3/uL Absolute Nucleated RBC (0.00-0.012) x10^3u/L Lymphocytes % (21.8-53.1) % Monocytes % (5.3-12.2) % Eosinophils % (0.8-7.0) % Basophils % (0.2-1.2) % Absolute Granulocytes (1.78-5.38) x10^3/uL Basophils # (0.01-0.08) x10^3/uL Sodium 137 (135-145) mmol/L Potassium 3.5 (3.5-5.1) mmol/L Chloride 105 (98-107) mmol/L Carbon Dioxide 23 (22-30) mmol/L Anion Gap 12.4 (5-15) MEQ/L BUN 24 H (9-20) mg/dL Creatinine 1.21 (0.66-1.25) mg/dL Estimated GFR 66.0 ML/MIN Glucose 114 H (74-106) mg/dL Calcium 8.5 (8.4-10.2) mg/dL Total Bilirubin 0.50 (0.2-1.3) mg/dL AST 67 H (17-59) U/L ALT 57 H (0-50) U/L Alkaline Phosphatase 62 (38-126) U/L Troponin I (0.000-0.033) ng/mL NT-Pro-B Natriuret Pep (<300) pg/mL Serum Total Protein 7.1 (6.3-8.2) g/dL Albumin 3.8 (3.5-5.0) g/dL TSH 3rd Generation (0.470-4.680) mIU/L Urine Color (Yellow) Urine Appearance (Clear) Urine pH (4.6-8.0) Ur Specific Center (1.005-1.030) Urine Protein (Negative) Urine Glucose (UA) (Negative) mg/dL Urine Ketones (Negative) Urine Blood (Negative) Urine Nitrite (Negative) Urine Bilirubin (Negative) Urine Urobilinogen (0.2) mg/dL Ur Leukocyte Esterase (Negative) U Hyaline Cast (Auto) (0-2) /LPF Urine Microscopic RBC (0-5) /HPF Urine Microscopic WBC (0-5) /HPF Ur Epithelial Cells (None Seen) /HPF Urine Bacteria (None Seen) /HPF Urine Culture Reflexed (NO) Influenza Type A Ag (NEGATIVE) Influenza Type B Ag (NEGATIVE) RSV (PCR) (NEGATIVE) SARS-CoV-2 (PCR) (NEGATIVE) Slides for Path Review Radiology Exams: Radiology Procedures Category Date Time Status CHEST 1 VIEW (PORTABLE) Stat Exams 05/03/24 12:03 Completed ECHO W/2D AND DOPPLER [US] Routine Exams 05/03/24 15:05 Taken HEAD WITHOUT CONTRAST [CT] Urgent Exams 05/03/24 15:05 Completed Assessment/Plan (1) Urinary tract infection Current Visit: Yes Status: Acute Assessment & Plan: -UA suspicious for infection Levaquin started in ED, will continue with Ceftriaxone -follow culture -no h/o of UTI 05/04: -Ucult with gram - ID - sensitivity pending continue ceftriaxone for now Code(s): N39.0 - URINARY TRACT INFECTION, SITE NOT SPECIFIED (2) Dizziness Current Visit: Yes Status: Acute Assessment & Plan: -orthostatic vitals -echo -CT head -PT/OT -IVF -EKG with NS -Med review 05/04/24: -CT head negative -+orthastatic vitals -repeat this morning -echo pending -repeat EKG Code(s): R42 - DIZZINESS AND GIDDINESS (3) Hyponatremia Current Visit: Yes Status: Chronic Assessment & Plan: -Mild most likely due to hypovolemia -IVF 05/04/24: -Sodium levels reviewed at 137 - resolved Code(s): E87.1 - HYPO-OSMOLALITY AND HYPONATREMIA (4) Recurrent falls Current Visit: Yes Status: Acute Assessment & Plan: -2/2 to weakness ? infectious etiology with UTI -CT head -PT evaluation 05/04/24: -CT negative for acute findings - -consult neuro /MRI Code(s): R29.6 - REPEATED FALLS (5) Generalized weakness Current Visit: Yes Status: Acute Assessment & Plan: -see recurrent falls Code(s): R53.1 - WEAKNESS (6) Acute renal injury Current Visit: Yes Status: Acute Assessment & Plan: -creat reviewed at 1.43 - baseline around 1.2-1.3 -Monitor renal/lytes daily -Avoid nephrotoxic agents DAVID/ARB/Diuretics/NSAIDS- change levaquin to ceftriaxone 05/04/26: -CMP reviewed, creat now at baseline 1.21 Code(s): N17.9 - ACUTE KIDNEY FAILURE, UNSPECIFIED (7) Afib Current Visit: Yes Status: Acute Assessment & Plan: -Continue home meds -Will discuss with Dr. Thompson tomorrow regarding Eliquis -may need to follow up OP for med changes - CM/ACO for help with cost -EKG NS -Tele Code(s): I48.91 - UNSPECIFIED ATRIAL FIBRILLATION (8) JOSE ELIAS (obstructive sleep apnea) Current Visit: Yes Status: Acute Assessment & Plan: -CPAP at home is broken - will continue here and try to help get his fixed at home Code(s): G47.33 - OBSTRUCTIVE SLEEP APNEA (ADULT) (PEDIATRIC) (9) Tonsil cancer Current Visit: Yes Status: Acute Assessment & Plan: -S/P radiation and chemo - 5.5 years ago - Follows with Dr. Osorio OP with surveillance VTE: lovenox PPI: protonix Dispo: 1-2 days Code status: Full code Code(s): N39.0 - URINARY TRACT INFECTION, SITE NOT SPECIFIED (2) Dizziness Current Visit: Yes Status: Acute Code(s): R42 - DIZZINESS AND GIDDINESS (3) Hyponatremia Current Visit: Yes Status: Chronic Code(s): E87.1 - HYPO-OSMOLALITY AND HYPONATREMIA (4) Recurrent falls Current Visit: Yes Status: Acute Code(s): R29.6 - REPEATED FALLS (5) Generalized weakness Current Visit: Yes Status: Acute Code(s): R53.1 - WEAKNESS (6) Acute renal injury Current Visit: Yes Status: Acute Code(s): N17.9 - ACUTE KIDNEY FAILURE, UNSPECIFIED (7) Afib Current Visit: Yes Status: Acute Code(s): I48.91 - UNSPECIFIED ATRIAL FIBRILLATION (8) JOSE ELIAS (obstructive sleep apnea) Current Visit: Yes Status: Acute Code(s): G47.33 - OBSTRUCTIVE SLEEP APNEA (ADULT) (PEDIATRIC) (9) Tonsil cancer Current Visit: Yes Status: Acute
[2024-05-04] MEDS: Tricor 145 MG PO SCH (08:41)
[2024-05-04] MEDS: ECOTRIN 81 MG PO SCH (08:41)
[2024-05-04] MEDS: THERAGRAN MULTIVITAMIN PO SCH (08:42)
[2024-05-04] MEDS: VITAMIN D PO SCH (08:42)
[2024-05-04] MEDS: ROCEPHIN 1 GM / 100 ML NaCl 1 GM/100 ML IVPB IV SCH (08:42)
[2024-05-04] MEDS: Cardizem CD PO SCH (08:42)
[2024-05-04] MEDS ORDERED: NON-FORMULARY ITEM (Cholecalciferol (Vitamin D3) [Vitamin D3] 125 MCG Capsule) PO SCH (10:00)
[2024-05-04] MEDS ORDERED: MV MIN PO SCH (10:00)
[2024-05-04] MEDS ORDERED: LUTEIN PO SCH (10:00)
[2024-05-04] MEDS ORDERED: DILTIAZEM HCL 180 MG PO SCH (10:00)
[2024-05-04] MEDS ORDERED: FOLIC PO SCH (10:00)
[2024-05-04] MEDS ORDERED: [UNRECOGNIZED DRUG - OTHER] PO SCH (10:00)
[2024-05-04] MEDS ORDERED: LYCOPEN PO SCH (10:00)
[2024-05-04] MEDS ORDERED: K1 PO SCH (10:00)
--- NOTE | 2024-05-04 14:08 | XRAY ---
Indication: Dizziness. Falls. Negative CT head. Sagittal, coronal, and axial MRI brain performed without contrast using T1, T2, FLAIR, diffusion, and ADC sequences. Comparison: None Age-appropriate global atrophy and mild periventricular degenerative micro-ischemia bilaterally. No acute intracranial hemorrhage, abnormal extra-axial fluid collection, or mass effect. Diffusion images negative for restricted signal. Fourth ventricle is midline without hydrocephalus. 7/8 cranial nerve complex bilaterally symmetric. Normal flow-void signal within the major intracerebral circulation. Normal appearing craniocervical junction and sella turcica. Visualized paranasal sinuses are clear. Impression: Atrophy and degenerative micro-ischemia within normal limits. No acute intracranial abnormalities or evidence for evolving large vessel territorial stroke.
[2024-05-05 05:14] LABS: Hematocrit 30.6 % (40.1-51.0); Mean Cell Volume 89.5 fL (79.0-92.2); Mean Corpuscular Hemoglobin 29.2 pg (25.7-32.2); Mean Corpuscular Hgb Concent. 32.7 g/dL (32.3-36.5); Mean Platelet Volume 9.7 fL (9.4-12.4); Platelet Count 279 x10^3/uL (163-337); Red Blood Count 3.42 x10^6/uL (4.63-6.08); White Blood Count 9.1 x10^3/uL (4.23-9.07)
--- NOTE | 2024-05-05 05:14 | PCM.NOTE ---
Date and Time: 05/05/24 0513 Subjective Assessment: Mr. Welch is a 68 year old male with a pmhx of HLD, emphysema, AFIB (on Eliquis), tonsil cancer, and JOSE ELIAS who presented to ED 05/03/24 with complaints of dysuria, generalized weakness, and falls. Patient reports that symptoms began approximately one week ago. He had noticed burning and frequency with urination and progressively became weak with an unsteady gait. He also reports vision changes, dizziness when standing, slurred speech, and trouble finding words - but this has been going on for several years. He states he has AFIB and has been prescribed Eliquis but has been off of it for about three weeks now due to cost. He denies fever, sob, cough, abdominal pain, n/v/d, headache, or hematuria. No recent sick contacts. Upon arrival to ED, vitals stable. CXR with no acute findings. CT and MRI Brain unremarkable.Labs remarkable for mild leukocytosis with wbc at 9.4, normocytic anemia with hgb at 11.0, mild hyponatremia at 131, elevated anion GAP at 15.3, and SOWMYA with creat at 1.43 (baseline around 1.2- 1.3). UA suspicious for infection. Respiratory panel negative. Levofloxacin given in ED. Neurology consulted and feels this may be related to infection with negative MRI and CTH. No further evaluation needed. 05/04/23: Patient febrile overnight. Patient also became unsteady when transporting to the restroom and fell per RN report. No trauma. CT head negative. Dysuria resolved. WBC remains elevated today. Culture growing gram - ID with sensitivity pending. Will get neuro consult and brain MRI. Patient at baseline creat. Denies fever,cough, sob, cp, abdominal pain, YOUNG, dizziness, N/V/D. 05/05/24: No overnight events noted. Endorses energy level and dysuria improved. He is becoming more steady. No longer dizzy. Neurology consulted - MRI brain unremarkable. No further testing needed. Unsteady gait and weakness most likely secondary to infection. Ucult with gram negative ID- sensitivity pending. Labs remarkable for hypokalemia this morning. Will replenish. Discussed Eliquis noncompliance due to cost with Dr. Thompson staff- appt made for tomorrow afternoon to try and set up patient with patient assistance or discuss alternative. - Review of Systems Constitutional: Weakness Eyes: No Symptoms Ears, Nose, & Throat: No Symptoms Respiratory: No Symptoms Cardiac: No Symptoms Abdominal/Gastrointestinal: No Symptoms Genitourinary Symptoms: No Symptoms Musculoskeletal: No Symptoms Skin: No Symptoms Neurological: No Symptoms Psychological: No Symptoms Endocrine: No Symptoms Hematologic/Lymphatic: No Symptoms Immunological/Allergic: No Symptoms Objective Exam General Appearance: no apparent distress Neurologic Exam: alert, oriented x 3, cooperative Skin Exam: normal color Eye Exam: PERRL Ears, Nose, Throat Exam: normal ENT inspection Neck Exam: normal inspection Respiratory Exam: normal breath sounds, lungs clear Cardiovascular Exam: regular rate/rhythm, normal heart sounds Gastrointestinal/Abdomen Exam: soft, normal bowel sounds Extremity Exam: normal inspection Back Exam: normal inspection Male Genitalia Exam: deferred Rectal Exam: deferred Objective Data Vital Signs: Vital Signs - 24 hr Temp Pulse Resp BP Pulse Ox 05/05/24 04:00 97.5 F 76 18 92/54 93 L 05/05/24 00:00 97.7 F 68 18 90/55 93 L 05/04/24 20:00 97.9 F 83 16 94/51 95 05/04/24 17:30 93 L 05/04/24 16:00 98.3 F 75 16 104/56 95 05/04/24 11:39 98.2 F 84 16 138/53 92 L 05/04/24 07:41 98.1 F 86 16 115/58 97 05/04/24 07:15 98 Pain Assessment - Last Documented Pain Intensity 0 Pain Scale Used 0-10 Pain Scale Intake and Output: Intake & Output 05/02/24 05/03/24 05/04/24 05/05/24 11:59 11:59 11:59 11:59 Intake Total 1834 2622 Output Total 425 Balance 1409 2622 Weight 77.5 kg 75.9 kg Lab Results: Lab Results-Last 24 Hours 05/04/24 Range/Units 04:25 Sodium 137 (135-145) mmol/L Potassium 3.5 (3.5-5.1) mmol/L Chloride 105 (98-107) mmol/L Carbon Dioxide 23 (22-30) mmol/L Anion Gap 12.4 (5-15) MEQ/L BUN 24 H (9-20) mg/dL Creatinine 1.21 (0.66-1.25) mg/dL Estimated GFR 66.0 ML/MIN Glucose 114 H (74-106) mg/dL Calcium 8.5 (8.4-10.2) mg/dL Total Bilirubin 0.50 (0.2-1.3) mg/dL AST 67 H (17-59) U/L ALT 57 H (0-50) U/L Alkaline Phosphatase 62 (38-126) U/L Serum Total Protein 7.1 (6.3-8.2) g/dL Albumin 3.8 (3.5-5.0) g/dL Radiology Exams: Radiology Procedures Category Date Time Status CHEST 1 VIEW (PORTABLE) Stat Exams 05/03/24 12:03 Completed ECHO W/2D AND DOPPLER [US] Routine Exams 05/03/24 15:05 Taken HEAD WITHOUT CONTRAST [CT] Urgent Exams 05/03/24 15:05 Completed MRI BRAIN W/O CONTRAST [MRI] Routine Exams 05/04/24 09:35 Completed Multi-Disciplinary Progress Notes: Multi-Disciplinary Progress Notes 05/04/24 16:36 OT Plan of Care Note by Franklin (L#[id number])Esperanza OT Eval OT Inpatient Eval and POC Start: 05/03/24 15:05 Freq: ONCE Status: Complete Protocol: Created 05/03/24 15:10 ED (Rec: 05/03/24 15:10 ED [id number]) Document 05/04/24 16:08 KA (Rec: 05/04/24 16:25 KA [id number]) OT Evaluation Subjective PATIENT AGREEABLE TO OT EVALUATION. ADMISSION: UTI, FREQUENT FALLS , WEAKNESS; X-RAY OF CHEST WFL AND MRI OF BRAIN WFL Pertinent Past Medical History SEE BOTTOM OF EVAL FOR MEDICAL HISTORY Prior Level of Function INDEPENDENT WITH I/ADLS, LIVES IN LARGE HOME WITH FULL BASEMENT, MAIN FLOOR, UPSTAIRS , AND ATTIC. HE HAS MULTIPLE STAIRS TO EACH FLOOR. HIS DAUGHTER AND HER FAMILY LIVES WITH HIM. HE WAS INDEP PRIOR TO THIS ADMISSION AND REPORTS A HISTORY OF SINUS INFECTION AND ANXIETY WHERE HE RETRIEVED MEDS, BUT "THIS EPISODE WAS DIFFERENT". HE RECENTLY BEGAN DEMO ON HIS UPSTAIRS BATHROOM AND PLANNING TO REMODEL IT, SO HE MUST USE THE MAIN FLOORS BATHROOM. Equipment at Home Prior to Admission None,Raised Toilet Seat Home Setup Tub/Shower Combination Date 05/04/24 Feeding WFL Grooming WFL Bathing WFL Dressing WFL Toileting WFL Bed Mobility WFL Comment LOG ROLL TECHNIQUE Toilet Transfers WFL Functional Transfers Impaired Comment CGA (DRIFTING NOTED DURING FUNCTIONAL MOBILITY) PATIENT REPORTS THAT IT IS BETTER COMPARED TO WHEN HE CAME INTO THE ER. Range of Motion WFL Comment LEFT SHOULDER AROM: LIMITED WITH FLEXION, BUT FUNCTIONAL IN ABDUCTION PATTERNS. REPORTS THAT HE INJURED LEFT SHOULDER 1 MONTH AGO. RIGHT UE AROM: WFL Coordination WFL: HE IS NOTED WITH MILD TREMORS WITH LEFT HAND OPPOSITION. MODIFIED TEST OF NOSE TO FINGER DUE TO BASELINE LEFT SHOULDER INJURY (ALL WFL ) Functional Strength VINICIO PRESENTS WITH FUNCTIONAL UB STRENGTH; UNABLE TO ASSESS LEFT SHOULDER DUE TO INJURY Functional Endurance FAIR (+): COMPLETES APPROXIMATELY 10 MINUTES OF ACTIVITY INLCUDING MOBILITY AND ADLS; 15 MINUTES WITH SITTING AT EDGE OF BED. Cognition ALERT AND ORIENTED X 4 Pain 9/10 STERNUM PAIN DURING MOVEMENT (OT RELAYED THIS INFO TO RN) Objective Data/Standardized Assessment(s JONES: 6/6 INDICATING HIGH ) LEVEL OF INDEPENDENCE WITH ADLS. Comment PATIENT UTILIZED CANE DURING FUNCTIONAL MOBILITY WITH POOR TECHNIQUE. OT ENCOURAGES PATIENT TO CONTINUE WITH CALLING NURSING STAFF FOR SUPERVISION DURING FUNCTIONAL MOBILITY DUE TO HIS FALL HISTORY. OT Plan Of Care Date of Evaluation 05/04/24 Treatment Diagnosis UTI Precaution/Orders as written HIGH FALL RISK Teaching Recipient Patient Patient is Aware of Diagnosis and Yes Prognosis Patient is receptive to Plan of Care and Yes contributory towards OT goals Discharge Recommendations/Plan OT RECOMMENDS DISCHARGE HOME AND TO FOLLOW UP WITH PCP REGARDING LEFT SHOULDER ROM DEFICITS IF IT DOES NOT IMPROVE, MAY BENEFIT FROM OUTPATIENT THERAPY ORDER FOR LEFT SHOULDER PAIN/ROM. Comment NO FURTHER SKILLED OT AT THIS TIME PATIENT TO CALL NURSING STAFF FOR SUPERVISION WITH FUNCTIONAL MOBILITY Medical & Surgical History Past Medical History Yes Neurological History No Pertinent History ENT History Other Endocrine History No Pertinent History Respiratory History Emphysema,Sleep Apnea Cardiac History Arrhythmia,High Cholesterol GI History No Pertinent History History No Pertinent History Male Reproductive Disorders No Pertinent History Musculoskeletal History No Pertinent History Psycho-Social History No Pertinent History Other Medical History throat CA, AFib, sleep apnea Past Surgical History Yes Hx Anesthesia Reactions No Hx Malignant Hyperthermia No Neurological Surgical History No Pertinent History ENT Surgical History No Pertinent History Respiratory Surgical History No Pertinent History Cardiac Surgical History No Pertinent History Gastrointestinal Surgical History No Pertinent History Genitourinary Surgical History No Pertinent History Male Surgical History No Pertinent History Musculoskeletal Surgical History Orthopedic Surgery Other Surgical History R leg procedure for chain saw injury, basal cell carcinoma, Alcohol None Drug Use none Hx Substance Use Treatment No Initialized on 05/04/24 16:36 - END OF NOTE 05/04/24 13:00 (created 05/04/24 13:47) Case Management Note by Latonya Ceja DISCUSSION WITH PATIENT REGARDING NEEDS AT DISCHARGE. PLEASANT AND TALKATIVE. PT REPORTS THAT NORMALLY HE IS INDEPENDENT WITH ALL ADL'S AND HE DRIVES. HE HAS TRANSPORTATION TO GET TO ALL APPTS, [facility], [facility] [employer], ETC. REPORTS THAT HE HAS BEEN WEAK, BUT THINKS IT IS BECAUSE HE FELL AT HOME AND HIS STERNUM AREA IS VERY PAINFUL. REPORTS THAT IT HURTS TO MOVE, SO HE HASN'T BEEN MOVING MUCH AT HOME. REPORTS THAT HE WAS AFRAID HE HAD FX HIS STERNUM BECAUSE IT WAS SO PAINFUL. PT REPORTS THAT HE HAS PLENTY OF FOOD IN THE HOME, A WARM HOME, AND DENIES ANY OTHER NEEDS FOR DISCHARGE. DENIES THE USE OF ANY EQUIP IN THE HOME. PLANS TO RETURN HOME TO PRE EPISODIC LEVEL OF FNX ON DISCHARGE. ALSO, REPORTS THAT HE HAS FAMILY AND FRIENDS THAT CAN HELP HIM AT HOME IF NEEDED. WILL CONTINUE TO FOLLOW FOR ALL DC NEEDS. Initialized on 05/04/24 13:47 - END OF NOTE 05/04/24 11:25 Radiology Note by ARMAND DANIELS TRANSTHORACIC ECHOCARDIOGRAM 05/03/2023: 1. Normal biventricular wall thickness, chamber size, and systolic function. 2. Estimated left ventricular ejection fraction is 60-65%. 3. Normal diastolic function profile. 4. Mild aortic sclerosis without stenosis. 5. Doppler: Trace to mild tricuspid regurgitation. 6. Normal PA systolic pressure. 7. Normal right atrial pressure. 8. No pericardial effusion. Armand Daniels MD [facility] Initialized on 05/04/24 11:25 - END OF NOTE Assessment/Plan (1) Urinary tract infection Current Visit: Yes Status: Acute Assessment & Plan: -UA suspicious for infection Levaquin started in ED, will continue with Ceftriaxone -follow culture -no h/o of UTI 05/04: -Ucult with gram - ID - sensitivity pending continue ceftriaxone for now Code(s): N39.0 - URINARY TRACT INFECTION, SITE NOT SPECIFIED (2) Dizziness Current Visit: Yes Status: Acute Assessment & Plan: -orthostatic vitals -echo -CT head -PT/OT -IVF -EKG with NS -Med review 05/04/24: -CT head negative -+orthastatic vitals -repeat this morning -echo pending -repeat EKG 05/05/23: -MRI and CTH reviewed negative for acute findings -Neurology consulted - feels this is related to illness vs neurological issue- no further testing needed -resolved today- gait improved Code(s): R42 - DIZZINESS AND GIDDINESS (3) Hyponatremia Current Visit: Yes Status: Chronic Assessment & Plan: -Mild most likely due to hypovolemia -IVF 05/04/24: -Sodium levels reviewed at 137 - resolved Code(s): E87.1 - HYPO-OSMOLALITY AND HYPONATREMIA (4) Recurrent falls Current Visit: Yes Status: Acute Assessment & Plan: -2/2 to weakness ? infectious etiology with UTI -CT head -PT evaluation 05/04/24: -CT negative for acute findings - -consult neuro /MRI 05/05: --MRI and CTH reviewed negative for acute findings -Neurology consulted - feels this is related to illness vs neurological issue- no further testing needed -resolved today- gait improved Code(s): R29.6 - REPEATED FALLS Hypokalemia -Potassium level reviewed and at 3.2 this morning -40meq po ordered with repeat at 3.6 - will order 20meq more and recheck 2 hours post (5) Generalized weakness Current Visit: Yes Status: Acute Assessment & Plan: -see recurrent falls Code(s): R53.1 - WEAKNESS (6) Acute renal injury Current Visit: Yes Status: Acute Assessment & Plan: -creat reviewed at 1.43 - baseline around 1.2-1.3 -Monitor renal/lytes daily -Avoid nephrotoxic agents DAVID/ARB/Diuretics/NSAIDS- change levaquin to ceftriaxone 1/7/27: -CMP reviewed, creat now at baseline 1.05/05/24: -CMP reviewed, creat wnl _resolved Code(s): N17.9 - ACUTE KIDNEY FAILURE, UNSPECIFIED (7) Afib Current Visit: Yes Status: Acute Assessment & Plan: -Continue home meds -Will discuss with Dr. Thompson tomorrow regarding Eliquis -may need to follow up OP for med changes - CM/ACO for help with cost -EKG NS -Tele 05/05/24: -Patient has appt tomorrow with Dr. Thompson to discuss Eliquis and possible alternative vs patient assistance program/samples - pt aware and agreeable Code(s): I48.91 - UNSPECIFIED ATRIAL FIBRILLATION (8) JOSE ELIAS (obstructive sleep apnea) Current Visit: Yes Status: Acute Assessment & Plan: -CPAP at home is broken - will continue here and try to help get his fixed at home Code(s): G47.33 - OBSTRUCTIVE SLEEP APNEA (ADULT) (PEDIATRIC) (9) Tonsil cancer Current Visit: Yes Status: Acute Assessment & Plan: -S/P radiation and chemo - 5.5 years ago - Follows with Dr. Osorio OP with surveillance VTE: lovenox PPI: protonix Dispo: 1-2 days Code status: Full code Code(s): N39.0 - URINARY TRACT INFECTION, SITE NOT SPECIFIED (2) Dizziness Current Visit: Yes Status: Acute Code(s): R42 - DIZZINESS AND GIDDINESS (3) Hyponatremia Current Visit: Yes Status: Chronic Code(s): E87.1 - HYPO-OSMOLALITY AND HYPONATREMIA (4) Recurrent falls Current Visit: Yes Status: Acute Code(s): R29.6 - REPEATED FALLS (5) Generalized weakness Current Visit: Yes Status: Acute Code(s): R53.1 - WEAKNESS (6) Acute renal injury Current Visit: Yes Status: Acute Code(s): N17.9 - ACUTE KIDNEY FAILURE, UNSPECIFIED (7) Afib Current Visit: Yes Status: Acute Code(s): I48.91 - UNSPECIFIED ATRIAL FIBRILLATION (8) JOSE ELIAS (obstructive sleep apnea) Current Visit: Yes Status: Acute Code(s): G47.33 - OBSTRUCTIVE SLEEP APNEA (ADULT) (PEDIATRIC) (9) Tonsil cancer Current Visit: Yes Status: Acute (10) Hypokalemia Current Visit: Yes Status: Acute Code(s): E87.6 - HYPOKALEMIA
[2024-05-05 05:34] LABS: ALBUMIN 3.4 g/dL (3.5-5.0); ANION GAP 10.7 MEQ/L (5-15); BILIRUBIN,TOTAL 0.5 mg/dL (0.2-1.3); Calcium 8.4 mg/dL (8.4-10.2); Creatinine 1 0.98 mg/dL (0.66-1.25); Potassium 3.2 mmol/L (3.5-5.1); Total Protein 6.6 g/dL (6.3-8.2)
[2024-05-05 05:54] LABS: ANISOCYTOSIS 1+; BAND 5 % (0.0-2.0); Lymphocytes 11 % (21.8-53.1); Monocyte 7 % (5.3-12.2); Neutrophils 77 % (34.0-67.9); Platelet Estimate NORMAL (NORMAL); Poikilocytosis 1+; Total Cells Counted 100
[2024-05-05] MEDS: Klor Con PO ONE ×2 (07:47→11:17)
[2024-05-06 05:12] LABS: Hematocrit 29.6 % (40.1-51.0); Hemoglobin 9.8 g/dL (13.7-17.5); Mean Cell Volume 89.4 fL (79.0-92.2); Mean Corpuscular Hemoglobin 29.6 pg (25.7-32.2); Mean Corpuscular Hgb Concent. 33.1 g/dL (32.3-36.5); Mean Platelet Volume 9.7 fL (9.4-12.4); Platelet Count 345 x10^3/uL (163-337); Red Blood Count 3.31 x10^6/uL (4.63-6.08); Red Cell Distribution Width 15.2 % (11.6-14.4); White Blood Count 7.1 x10^3/uL (4.23-9.07)
[2024-05-06 05:31] LABS: ALBUMIN 3.6 g/dL (3.5-5.0); ANION GAP 13.8 MEQ/L (5-15); BILIRUBIN,TOTAL 0.6 mg/dL (0.2-1.3); Calcium 8.7 mg/dL (8.4-10.2); Creatinine 1 0.93 mg/dL (0.66-1.25); EST GLOMERULAR FILTRATION RATE 90.6 ML/MIN
--- NOTE | 2024-05-06 05:36 | PCM.DS ---
Discharge Summary Date of Admission: 05/03/24 14:31 Date of Discharge: 05/06/24 Admitting Physician: BRITTANY GARCIA MD Consults: Consults on Case 05/04/24 08:03 Consult Neurology ROUTINE Primary Care Provider: HAILEY MONTE Allergies Allergies No Known Drug Allergies Allergy (Verified 03/18/24 10:36) Hospital Summary - Hospital Course Hospital Course: Mr. Welch is a 68 year old male with a pmhx of HLD, emphysema, AFIB (on Eliquis), tonsil cancer, and JOSE ELIAS who presented to ED 05/03/24 with complaints of dysuria, generalized weakness, and falls. Patient reports that symptoms began approximately one week ago. He had noticed burning and frequency with urination and progressively became weak with an unsteady gait. He also reports vision changes, dizziness when standing, slurred speech, and trouble finding words - but this has been going on for several years. He states he has AFIB and has been prescribed Eliquis but has been off of it for about three weeks now due to cost. He denies fever, sob, cough, abdominal pain, n/v/d, headache, or hematuria. No recent sick contacts. Upon arrival to ED, vitals stable. CXR with no acute findings. CT and MRI Brain unremarkable.Labs remarkable for mild leukocytosis with wbc at 9.4, normocytic anemia with hgb at 11.0, mild hyponatremia at 131, elevated anion GAP at 15.3, and SOWMYA with creat at 1.43 (baseline around 1.2- 1.3). UA suspicious for infection. Respiratory panel negative. Levofloxacin given in ED. Neurology consulted and feels this may be related to infection with negative MRI and CTH. No further evaluation needed. PT has worked with patient and gait is now at baseline. Discussed Eliquis noncompliance due to cost with Dr. Thompson staff- appt made for this afternoon to try and set up patient with patient assistance or discuss alternative. CM has checked on getting CPAP machine repaired. Ucult with ecoli. Will send home on cefuroxime. Patient agreeable to plan and stable for discharge. Discharge Note New Diagnosis:UTI New Medications:cefuroxime Follow Up: PCP/cardiology Latest Assessment & Plan (1) Urinary tract infection Current Visit: Yes Status: Acute Assessment & Plan: -UA suspicious for infection Levaquin started in ED, will continue with Ceftriaxone -follow culture -no h/o of UTI 05/04: -Ucult with gram - ID - sensitivity pending continue ceftriaxone for now Code(s): N39.0 - URINARY TRACT INFECTION, SITE NOT SPECIFIED (2) Dizziness Current Visit: Yes Status: Acute Assessment & Plan: -orthostatic vitals -echo -CT head -PT/OT -IVF -EKG with NS -Med review 05/04/24: -CT head negative -+orthastatic vitals -repeat this morning -echo pending -repeat EKG 05/05/23: -MRI and CTH reviewed negative for acute findings -Neurology consulted - feels this is related to illness vs neurological issue- no further testing needed -resolved today- gait improved Code(s): R42 - DIZZINESS AND GIDDINESS (3) Hyponatremia Current Visit: Yes Status: Chronic Assessment & Plan: -Mild most likely due to hypovolemia -IVF 05/04/24: -Sodium levels reviewed at 137 - resolved Code(s): E87.1 - HYPO-OSMOLALITY AND HYPONATREMIA (4) Recurrent falls Current Visit: Yes Status: Acute Assessment & Plan: -2/2 to weakness ? infectious etiology with UTI -CT head -PT evaluation 05/04/24: -CT negative for acute findings - -consult neuro /MRI 05/05: --MRI and CTH reviewed negative for acute findings -Neurology consulted - feels this is related to illness vs neurological issue- no further testing needed -resolved today- gait improved Code(s): R29.6 - REPEATED FALLS Hypokalemia -Potassium level reviewed and at 3.2 this morning -40meq po ordered with repeat at 3.6 - will order 20meq more and recheck 2 hours post (5) Generalized weakness Current Visit: Yes Status: Acute Assessment & Plan: -see recurrent falls Code(s): R53.1 - WEAKNESS (6) Acute renal injury Current Visit: Yes Status: Acute Assessment & Plan: -creat reviewed at 1.43 - baseline around 1.2-1.3 -Monitor renal/lytes daily -Avoid nephrotoxic agents DAVID/ARB/Diuretics/NSAIDS- change levaquin to ceftriaxone 05/04/26: -CMP reviewed, creat now at baseline 1.21 05/05/24: -CMP reviewed, creat wnl _resolved Code(s): N17.9 - ACUTE KIDNEY FAILURE, UNSPECIFIED (7) Afib Current Visit: Yes Status: Acute Assessment & Plan: -Continue home meds -Will discuss with Dr. Thompson tomorrow regarding Eliquis -may need to follow up OP for med changes - CM/ACO for help with cost -EKG NS -Tele 05/05/24: -Patient has appt tomorrow with Dr. Thompson to discuss Eliquis and possible alternative vs patient assistance program/samples - pt aware and agreeable Code(s): I48.91 - UNSPECIFIED ATRIAL FIBRILLATION (8) JOSE ELIAS (obstructive sleep apnea) Current Visit: Yes Status: Acute Assessment & Plan: -CPAP at home is broken - will continue here and try to help get his fixed at home Code(s): G47.33 - OBSTRUCTIVE SLEEP APNEA (ADULT) (PEDIATRIC) (9) Tonsil cancer Current Visit: Yes Status: Acute Assessment & Plan: -S/P radiation and chemo - 5.5 years ago - Follows with Dr. Osorio OP with surveillance VTE: lovenox PPI: protonix Dispo: 1-2 days Code status: Full code Code(s): N39.0 - URINARY TRACT INFECTION, SITE NOT SPECIFIED I spent 35 minutes [id number] with the patient on the day of discharge performing discharge exam, discussing hospital stay and discharge instructions with patient and caregivers, preparation of discharge records, prescriptions & referral forms and addressing any questions/concerns the patient had as documented above. - Vitals & Intake/Output Vital Signs: Vital Signs Temperature 97.7 F 05/06/24 04:00 Pulse Rate 73 05/06/24 04:00 Respiratory Rate 18 05/06/24 04:00 Blood Pressure 109/56 05/06/24 04:00 O2 Sat by Pulse Oximetry 96 05/06/24 04:00 Intake & Output: Intake & Output 05/03/24 05/04/24 05/05/24 05/06/24 11:59 11:59 11:59 11:59 Intake Total 1834 3202 2078 Output Total 425 Balance 1409 3202 2078 Weight 77.5 kg 75.9 kg - Lab Result Diagrams: 05/06/24 05:05 05/06/24 05:05 Lab Results-Last 24 Hrs: Lab Results-Last 24 Hours 05/05/24 05/05/24 05/05/24 Range/Units 04:45 04:45 10:16 WBC (4.23-9.07) x10^3/uL RBC (4.63-6.08) x10^6/uL Hgb (13.7-17.5) g/dL Hct (40.1-51.0) % MCV (79.0-92.2) fL MCH (25.7-32.2) pg MCHC (32.3-36.5) g/dL RDW (11.6-14.4) % Plt Count (163-337) x10^3/uL MPV (9.4-12.4) fL Segmented Neutrophils 77 H (34.0-67.9) % Band Neutrophils 5 H (0.0-2.0) % Lymphocytes (Manual) 11 L (21.8-53.1) % Monocytes (Manual) 7 (5.3-12.2) % Platelet Estimate NORMAL (NORMAL) RBC Morphology ABNORMAL Poikilocytosis 1+ Anisocytosis 1+ Sodium 140 (135-145) mmol/L Potassium 3.2 L 3.6 (3.5-5.1) mmol/L Chloride 107 (98-107) mmol/L Carbon Dioxide 25 (22-30) mmol/L Anion Gap 10.7 (5-15) MEQ/L BUN 17 (9-20) mg/dL Creatinine 0.98 (0.66-1.25) mg/dL Estimated GFR 85.0 ML/MIN Glucose 109 H (74-106) mg/dL Calcium 8.4 (8.4-10.2) mg/dL Total Bilirubin 0.50 (0.2-1.3) mg/dL AST 134 H (17-59) U/L ALT 125 H (0-50) U/L Alkaline Phosphatase 73 (38-126) U/L Serum Total Protein 6.6 (6.3-8.2) g/dL Albumin 3.4 L (3.5-5.0) g/dL 05/05/24 05/06/24 Range/Units 13:38 05:05 WBC 7.1 (4.23-9.07) x10^3/uL RBC 3.31 L (4.63-6.08) x10^6/uL Hgb 9.8 L (13.7-17.5) g/dL Hct 29.6 L (40.1-51.0) % MCV 89.4 (79.0-92.2) fL MCH 29.6 (25.7-32.2) pg MCHC 33.1 (32.3-36.5) g/dL RDW 15.2 H (11.6-14.4) % Plt Count 345 H (163-337) x10^3/uL MPV 9.7 (9.4-12.4) fL Segmented Neutrophils (34.0-67.9) % Band Neutrophils (0.0-2.0) % Lymphocytes (Manual) (21.8-53.1) % Monocytes (Manual) (5.3-12.2) % Platelet Estimate (NORMAL) RBC Morphology Poikilocytosis Anisocytosis Sodium (135-145) mmol/L Potassium 3.7 (3.5-5.1) mmol/L Chloride (98-107) mmol/L Carbon Dioxide (22-30) mmol/L Anion Gap (5-15) MEQ/L BUN (9-20) mg/dL Creatinine (0.66-1.25) mg/dL Estimated GFR ML/MIN Glucose (74-106) mg/dL Calcium (8.4-10.2) mg/dL Total Bilirubin (0.2-1.3) mg/dL AST (17-59) U/L ALT (0-50) U/L Alkaline Phosphatase (38-126) U/L Serum Total Protein (6.3-8.2) g/dL Albumin (3.5-5.0) g/dL Micro Results-Entire Visit: Microbiology 05/04/24 10:02 Blood Culture - Preliminary Blood 05/04/24 10:10 Blood Culture - Preliminary Blood 05/03/24 12:55 Urine Culture - Preliminary Urine, Void GRAM NEGATIVE ID AND SENSITIVITY PENDING - Radiology Exams Ordered Rad Exams-Entire Visit: Radiology Procedures Category Date Time Status MRI BRAIN W/O CONTRAST [MRI] Routine Exams 05/04/24 09:35 Completed - Procedures and Test Procedures and Tests throughout Hospitalization: Therapy Orders & Screens 05/03/24 15:05 PT Eval & Treat ( Order) ONCE Reason for Eval:: weakness/falls Diagnosis: Urinary tract infection, acute renal injury OT Eval and Treat (MD Order) ONCE Comment: Physician Instructions: Reason For Exam: Diagnosis: Urinary tract infection, acute renal injury 05/03/24 17:37 ST Screen per Nursing Assess ONCE Comment: Protocol Order Physician Instructions: Greater than [address] Admission Screening Reason For Exam: Triggered on Admission Diagnosis: Urinary tract infection, acute renal injury CVA/Dyshpagia/Aphasia: No Cognitive Deficits: No Dehydration/Nutrition Deficit: Yes Reflux: No Oral-Motor Difficulties: No Pneumonia: No Senior Living Resident: No Total Points: 5 05/03/24 18:22 BiPap/CPAP ROUTINE Comment: Diagnosis: Urinary tract infection, acute renal injury Discharge Exam General Appearance: no apparent distress Neurologic Exam: alert, oriented x 3, cooperative Eye Exam: PERRL Ears, Nose, Throat Exam: normal ENT inspection Neck Exam: normal inspection Respiratory Exam: normal breath sounds, lungs clear Cardiovascular Exam: regular rate/rhythm, normal heart sounds Gastrointestinal/Abdomen Exam: soft, normal bowel sounds Male Genitalia Exam: deferred Rectal Exam: deferred Back Exam: normal inspection Extremity Exam: normal inspection Skin Exam: normal color Final Diagnosis/Problem List - Final Discharge Diagnosis/Problem (1) Urinary tract infection Current Visit: Yes Status: Acute Code(s): N39.0 - URINARY TRACT INFECTION, SITE NOT SPECIFIED (2) Dizziness Current Visit: Yes Status: Resolved Code(s): R42 - DIZZINESS AND GIDDINESS (3) Hyponatremia Current Visit: Yes Status: Resolved Code(s): E87.1 - HYPO-OSMOLALITY AND HYPONATREMIA (4) Recurrent falls Current Visit: Yes Status: Chronic Code(s): R29.6 - REPEATED FALLS (5) Generalized weakness Current Visit: Yes Status: Acute Code(s): R53.1 - WEAKNESS (6) Acute renal injury Current Visit: Yes Status: Acute Code(s): N17.9 - ACUTE KIDNEY FAILURE, UNSPECIFIED (7) Afib Current Visit: Yes Status: Chronic Code(s): I48.91 - UNSPECIFIED ATRIAL FIBRILLATION (8) JOSE ELIAS (obstructive sleep apnea) Current Visit: Yes Status: Chronic Code(s): G47.33 - OBSTRUCTIVE SLEEP APNEA (ADULT) (PEDIATRIC) (9) Tonsil cancer Current Visit: Yes Status: Acute (10) Hypokalemia Current Visit: Yes Status: Acute Code(s): E87.6 - HYPOKALEMIA - Discharge Discharge Date: 05/06/24 Disposition: Home, Self-Care Condition: Stable Prescriptions: New cefuroxime axetiL [Cefuroxime] 500 mg PO BID 7 Days #14 tablet Continue Fenofibrate Nanocrystallized [Fenofibrate] 145 mg PO DAILY dilTIAZem HCL [Matzim LA] 180 mg PO DAILY Atorvastatin Calcium [Lipitor] 80 mg PO HS Aspirin EC 81 mg [Ecotrin 81 mg] 81 mg PO DAILY Bupropion HCl Xl 150 mg [Wellbutrin XL 150 MG] 150 mg PO HS Cholecalciferol (Vitamin D3) [Vitamin D3] 125 mcg PO DAILY Mv-Min/Folic/K1/Lycopen/Lutein [Men 50 Plus Multivitamin Tab] 1 each PO DAILY ALPRAZolam 1 MG [Xanax 1 mg] 2 mg PO HS Buspirone HCl 15 mg PO HS Instructions: Preventing falls in adults, Urinary tract infection - Discharge instructions Follow up with: STONEY THOMPSON [CONSULTING PHYSICIAN] - 05/06/24 1:15 pm (at [facility] office) HAILEY MONTE MD [Primary Care Provider] - 05/12/24 11:00 am Forms: Discharge Instructions
[2024-05-06 05:58] LABS: BAND 18 % (0.0-2.0); Basophil 1 % (0.2-1.2); Eosinophil 4 % (0.8-7.0); Lymphocytes 8 % (21.8-53.1); Monocyte 8 % (5.3-12.2); Neutrophils 61 % (34.0-67.9); Total Cells Counted 100
[2024-05-06 06:00] LABS: ANISOCYTOSIS 1+; Poikilocytosis 1+
[2024-05-06 06:01] LABS: Platelet Estimate NORMAL (NORMAL)
[2024-05-06 07:22] VITALS: RESP 16
[2024-05-06 11:31] VITALS: BP 116/55; PULSE 67; TEMP 98.1; O2SAT 97
== END 2024-05-06 11:45 | disposition home or self-care (01) ==
LOC: ED 10:57 → MED SURG 14:31
PROVIDERS: ADMIT Internal Medicine; ATTEND Internal Medicine
DX: N39.0 Urinary tract infection, site not specified (principal); B96.20 Unspecified Escherichia coli [E. coli] as the cause of diseases classified elsewhere; R42 Dizziness and giddiness; E87.1 Hypo-osmolality and hyponatremia; R29.6 Repeated falls; E87.6 Hypokalemia; R53.1 Weakness; N17.9 Acute kidney failure, unspecified; I48.91 Unspecified atrial fibrillation; G47.33 Obstructive sleep apnea (adult) (pediatric); W19.XXXA Unspecified fall, initial encounter; Z79.01 Long term (current) use of anticoagulants; Z79.899 Other long term (current) drug therapy; Z85.21 Personal history of malignant neoplasm of larynx
CPT/HCPCS: 0241U; 36415; 70450; 70551; 71045; 80053; 81001; 83880; 84132; 84443; 84484; 85025; 87040; 87077; 87086; 87186; 93005; 93041; 93268; 93306; 94660; 94760; 96365; 97161; 97165; 97530; 99285; G0378; Q3014; J0696; J1644; J1956; A9270-GY